=== PATIENT | male | born 1965 | race African-American/Black ===

== ENCOUNTER 2017-09-11 21:34 | Emergency (ER) | payer SELFPAY ==
[~2017-09-11] VITALS: Ht 193 cm; Wt 99.8 kg
[~2017-09-11 21:34] MED LIST: IBUPROFEN600 MG PO; IBUPROFEN800 MG ORAL; KEFLEX500 MG ORAL; NORCO 10/3251 EA ORAL; NORCO 5-325 TA1 EACH ORAL; NORCO 5-325 TA1 EACH PO; OXYCONTIN20 MG ORAL; PERCOCET 10-321 EACH ORAL; PROZAC10 MG ORAL; TRAMADOL HCL50 MG ORAL; UNOBMED
--- NOTE | 2017-09-11 21:40 | Emergency Room Report ---
History of Present Illness General Chief Complaint: Pain Source: Patient, EMS Present Illness HPI Is a 51-year-old male with a history of chronic pain. He called 911 because he said he has denies body pain that's been ongoing for over 20 years. He's been here numerous times in the past. He was just released from alf 10 days ago. He said he hasn't had any pain medication since then. Pain is 10 out of 10. Diffuse in nature. No fever chills but no trauma. He was walking without any difficulty per and months. Allergies: Coded Allergies: No Known Allergies (Unverified , 11/07/15) Patient History Past Medical History: see triage record, old chart reviewed Past Surgical History: other Pertinent Family History: none Social History: Reports: smoking Immunizations: other Reviewed Nursing Documentation: PMH: Agreed; PSxH: Agreed Nursing Documentation-PMH Past Medical History: No Stated History Hx Hypertension: Yes Review of Systems Eye: Denies: eye pain, blurred vision ENT: Denies: ear pain, nose congestion, throat swelling Respiratory: Denies: cough, shortness of breath Cardiovascular: Denies: chest pain, palpitations Gastrointestinal: Denies: abdominal pain, diarrhea, nausea, vomiting Musculoskeletal: Reports: joint pain, muscle pain; Denies: back pain Skin: Denies: rash Neurological: Denies: headache, numbness Endocrine: Denies: increased thirst, increased urine Hematologic/Lymphatic: Denies: easy bruising All Other Systems: negative except mentioned in HPI Physical Exam Vital Signs Date Time Temp Pulse Resp B/P (MAP) Pulse Ox O2 Delivery O2 Flow Rate FiO2 09/11/17 21:25 98.9 94 18 130/78 97 Room Air 99.0 vitals normal Sp02 EP Interpretation: reviewed, normal General Appearance: well appearing, no apparent distress, alert Head: normocephalic, atraumatic Eyes: bilateral eye PERRL, bilateral eye EOMI ENT: hearing grossly normal, normal pharynx Neck: full range of motion, supple, no meningismus Respiratory: chest non-tender, lungs clear, normal breath sounds Cardiovascular #1: regular rate, rhythm, no murmur Gastrointestinal: normal bowel sounds, non tender, no mass, no organomegaly, no bruit, non-distended Musculoskeletal: back normal, gait/station normal, normal range of motion Psychiatric: mood/affect normal Skin: warm/dry Medical Decision Making Diagnostic Impression: Primary Impression: opiate dependence Additional Impression: Pain ER Course Patient presents with exacerbation of chronic pain. He was walking without any difficulty. When he was placed in a chair, he said he wanted to bed to lay down. Unfortunately, or ER was full and there is no beds available. At this point he laid on the ground. He said he was hurting too much to walk. Because he was not cooperating, he was escorted out of the ER. He left without pain medication. When I ask him initially what kind of pain medication he was receiving in alf, he said he did not get anything. I see no need to give him pain medication for chronic issue here. I offered Motrin which he refused. Last Vital Signs Date Time Temp Pulse Resp B/P (MAP) Pulse Ox O2 Delivery O2 Flow Rate FiO2 09/11/17 21:25 98.9 94 18 130/78 97 Room Air 99.0 Status: unchanged Disposition: HOME, SELF-CARE Condition: Stable DRU GREGORIO M.D. September 11, 2017 21:40
[2017-09-11 21:46] VITALS: BP 130/78
== END 2017-09-11 21:46 | disposition home or self-care (01) ==
LOC: EDBD 21:34 → EMR 21:40
DX: F11.10 Opioid abuse, uncomplicated (principal); G89.29 Other chronic pain; I10 Essential (primary) hypertension
CPT/HCPCS: 99283

== ENCOUNTER 2017-09-22 13:45 | Inpatient (IN) | payer SELFPAY ==
[2017-09-22] VITALS (8 sets, daily range): BP systolic 87–114; BP diastolic 46–64
[~2017-09-22] VITALS: Ht 195.6 cm; Wt 97.6 kg
[2017-09-22] MEDS ORDERED: Pantoprazole Inj IV ONE (14:30)
[2017-09-22 15:05] LABS: HEMATOCRIT 37.2 % (42.0-52.0); HEMOGLOBIN 12.6 G/DL (14.2-18.0); MEAN CORPUSCULAR VOLUME 103 FL (80-99); PLATELET COUNT 84 K/UL (150-450); RED BLOOD COUNT 3.62 M/UL (4.70-6.10); RED CELL DISTRIBUTION WIDTH 13.1 % (11.6-14.8); WHITE BLOOD COUNT 5.2 K/UL (4.8-10.8)
[2017-09-22 15:11] LABS: INR 1.1 (0.9-1.1)
[2017-09-22 15:13] LABS: ANION GAP 9 mmol/L (5-15); BLOOD UREA NITROGEN 10 mg/dL (7-18); CALCIUM 7.6 MG/DL (8.5-10.1); CARBON DIOXIDE 28 MMOL/L (21-32); CHLORIDE 106 MMOL/L (98-107); CREATININE 0.9 MG/DL (0.55-1.30); POTASSIUM 3.9 MMOL/L (3.5-5.1); SODIUM 142 MMOL/L (136-145)
[2017-09-22 15:34] LABS: ALANINE AMINOTRANSFERASE 199 U/L (12-78); ALBUMIN 2.7 G/DL (3.4-5.0); ALBUMIN/GLOBULIN RATIO 0.7 (1.0-2.7); ALKALINE PHOSPHATASE 158 U/L (46-116); ASPARTATE AMINO TRANSFERASE 317 U/L (15-37)
--- NOTE | 2017-09-22 16:16 | Emergency Room Report ---
History of Present Illness General Chief Complaint: Vomiting Source: Patient Present Illness HPI 51-year-old male presents ED for evaluation. Patient brought in because of vomiting. Friend at bedside states he's been vomiting blood times one day. Admits to drinking alcohol today. Denies drug use. Denies any abdominal pain. Denies any chest pain or shortness of breath. No other aggravating or relieving factors. Denies any other associated symptoms Allergies: Coded Allergies: No Known Allergies (Unverified , 11/07/15) Patient History Past Medical History: HTN Past Surgical History: none Pertinent Family History: none Social History: Reports: alcohol use; Denies: smoking, drug use Immunizations: UTD Reviewed Nursing Documentation: PMH: Agreed; PSxH: Agreed Nursing Documentation-PMH Past Medical History: No History, Except For Hx Hypertension: Yes Review of Systems All Other Systems: negative except mentioned in HPI Physical Exam Vital Signs Date Time Temp Pulse Resp B/P (MAP) Pulse Ox O2 Delivery O2 Flow Rate FiO2 09/22/17 14:25 99.0 90 16 115/67 99 Room Air 99.0 Sp02 EP Interpretation: reviewed, normal General Appearance: no apparent distress, alert, GCS 15, non-toxic Head: normocephalic, atraumatic Eyes: bilateral eye normal inspection, bilateral eye PERRL ENT: hearing grossly normal, normal pharynx, no angioedema, normal voice Neck: full range of motion, supple/symm/no masses Respiratory: chest non-tender, lungs clear, normal breath sounds, speaking full sentences Cardiovascular #1: regular rate, rhythm, no edema Cardiovascular #2: 2+ carotid (R), 2+ carotid (L), 2+ radial (R), 2+ radial (L) , 2+ dorsalis pedis (R), 2+ dorsalis pedis (L) Gastrointestinal: normal bowel sounds, non tender, soft, non-distended, no guarding, no rebound Rectal: deferred Genitourinary: normal inspection, no CVA tenderness Musculoskeletal: back normal, gait/station normal, normal range of motion, non- tender Neurologic: alert, oriented x3, responsive, motor strength/tone normal, sensory intact, speech normal Psychiatric: judgement/insight normal, memory normal, mood/affect normal, no suicidal/homicidal ideation Reflexes: 3+ bicep (R), 3+ bicep (L), 3+ tricep (R), 3+ tricep (L), 3+ knee (R) , 3+ knee (L) Skin: normal color, no rash, warm/dry, well hydrated Lymphatic: no adenopathy Procedures Critical Care Time Critical Care Time i. I feel this is a highly complex case requiring extensive working including EKG/Rhythm strip, Xray/CT/US, Blood/urine lab work, repeat exams while in ED, and administration of strong opiates/narcotics for pain control, admission to hospital or close patient follow up. Total time: 30 min bedside evaluation and treatment excludes procedures (EKG). Reason for critical care: Upper GI bleed, hypotensive, hematemesis Possible complications: hypotension, hypertension, OH, shock, arrhythmias, metabolic acidosis, end organ damage, respiratory failure. Interventions: Labs, IV fluids, Zofran, Protonix. Somatostatin. Protonix drip. Somatostatin drip. Consultation with GI Course: Patient presenting with hematemesis. History of alcohol abuse. Labs show significant LFT elevation. Coags okay. Hemoglobin/hematocrit okay. EtOH elevated. During ED course patient had 3 episodes of hematemesis. Hypotensive. Improved with IV hydration. Given Zofran, Protonix, octreotide. Started on Protonix drip and octreotide drip. consultation with GI. Consultations: nursing staff, EMS, family Performed by: Dr Kan Tolerated well condition = critical j. because of unstable vital signs this patient had a condition that could potentially threaten life or limb. I feel this is a critical patient who required my full attention while patient was considered critical. Total Critical Care Time excluding procedures was greater than 35 minutes Medical Decision Making Diagnostic Impression: Primary Impression: Alcohol intoxication Qualified Codes: F10.929 - Alcohol use, unspecified with intoxication, unspecified Additional Impressions: Elevated LFTs Upper GI hemorrhage ER Course Hospital Course 51-year-old male presents ED with vomiting blood. Differential diagnoses include: UGIB, LGIB, cirrhosis Clinical course Patient placed on stretcher. ekg monitor. After initial history and physical I ordered labs, IV fluids, protonix, zofran Labs - no leukocytosis, Hb/Hct stable. electrolytes ok, LFTs markedly elevated, ETOH > 300, coags ok Patient rested comfortably in ED. When patient woke up he had 3 episodes of hematemesis. Gross blood. Became hypotensive. Given IV hydration. Given additional Protonix. Given octreotide. Started on Protonix drip, started on octreotide drip Repeat Hb 9.6 (intially 12.6). Patient has had no further episodes of vomiting. No indication for intubation at this time. EKG - NSR, no acute ischemic changes interpreted by me I spoke to GI Dr Duke; he will see the patient and attempt urgent endoscopy Case discussed with Dr. Rangel and he agreed to accept the patient to his service for further care and support I feel this is a highly complex case requiring extensive working including EKG/ Rhythm strip, Xray/CT/US, Blood/urine lab work, repeat exams while in ED, and administration of strong opiates/narcotics for pain control, admission to hospital or close patient follow up. Diagnosis - alcohol intoxication, elevated LFTs, upper GI hemorrhage Patient admitted to ICU in critical condition Labs Test 09/22/17 14:40 White Blood Count 5.2 K/UL (4.8-10.8) Red Blood Count 3.62 M/UL (4.70-6.10) Hemoglobin 12.6 G/DL (14.2-18.0) Hematocrit 37.2 % (42.0-52.0) Mean Corpuscular Volume 103 FL (80-99) Mean Corpuscular Hemoglobin 34.9 PG (27.0-31.0) Mean Corpuscular Hemoglobin Concent 34.0 G/DL (32.0-36.0) Red Cell Distribution Width 13.1 % (11.6-14.8) Platelet Count 84 K/UL (150-450) Mean Platelet Volume 9.2 FL (6.5-10.1) Neutrophils (%) (Auto) % (45.0-75.0) Lymphocytes (%) (Auto) % (20.0-45.0) Monocytes (%) (Auto) % (1.0-10.0) Eosinophils (%) (Auto) % (0.0-3.0) Basophils (%) (Auto) % (0.0-2.0) Differential Total Cells Counted 100 Neutrophils % (Manual) 52 % (45-75) Lymphocytes % (Manual) 28 % (20-45) Monocytes % (Manual) 11 % (1-10) Eosinophils % (Manual) 6 % (0-3) Basophils % (Manual) 3 % (0-2) Band Neutrophils 0 % (0-8) Platelet Estimate Decreased Platelet Morphology Normal Anisocytosis 1+ Macrocytosis 1+ Prothrombin Time 11.7 SEC (9.30-11.50) Prothromb Time International Ratio 1.1 (0.9-1.1) Activated Partial Thromboplast Time 28 SEC (23-33) Sodium Level 142 MMOL/L (136-145) Potassium Level 3.9 MMOL/L (3.5-5.1) Chloride Level 106 MMOL/L (98-107) Carbon Dioxide Level 28 MMOL/L (21-32) Anion Gap 9 mmol/L (5-15) Blood Urea Nitrogen 10 mg/dL (7-18) Creatinine 0.9 MG/DL (0.55-1.30) Estimat Glomerular Filtration Rate > 60 mL/min (>60) Glucose Level 129 MG/DL (74-106) Calcium Level 7.6 MG/DL (8.5-10.1) Total Bilirubin 1.0 MG/DL (0.2-1.0) Aspartate Amino Transf (AST/SGOT) 317 U/L (15-37) Alanine Aminotransferase (ALT/SGPT) 199 U/L (12-78) Alkaline Phosphatase 158 U/L (46-116) Total Protein 6.6 G/DL (6.4-8.2) Albumin 2.7 G/DL (3.4-5.0) Globulin 3.9 g/dL Albumin/Globulin Ratio 0.7 (1.0-2.7) Lipase 577 U/L (73-393) Serum Alcohol 347 mg/dL EKG Diagnostic Results Rate: normal Rhythm: NSR ST Segments: no acute changes ASA given to the pt in ED: No Rhythm Strip Diag. Results EP Interpretation: yes Rhythm: NSR, no PVC's, no ectopy Last Vital Signs Date Time Temp Pulse Resp B/P (MAP) Pulse Ox O2 Delivery O2 Flow Rate FiO2 09/22/17 14:25 99.0 90 16 115/67 99 Room Air 99.0 Status: improved Disposition: HOME, SELF-CARE Condition: Critical Mario Kan MD Sep 22, 2017 16:16
[2017-09-22] MEDS ORDERED: Octreotide Acetate 500 MCG in Sodium Chloride 500ML 499 ML IV SCH (17:00)
[2017-09-22] MEDS ORDERED: SandoSTATIN 50mcg Inj IVP ONE (17:15)
[2017-09-22] MEDS ORDERED: Pantoprazole 80 MG in NS 250 ML IV ONE (17:15)
[2017-09-22] MEDS ORDERED: Pantoprazole Inj IVP ONE (17:15)
[2017-09-22] MEDS ORDERED: Metoclopramide 10mg/2ml Inj IVP ONE (17:30)
[2017-09-22 18:50] LABS: HEMATOCRIT 27.7 % (42.0-52.0); HEMOGLOBIN 9.6 G/DL (14.2-18.0); MEAN CORPUSCULAR VOLUME 100 FL (80-99); PLATELET COUNT 69 K/UL (150-450); RED BLOOD COUNT 2.76 M/UL (4.70-6.10); RED CELL DISTRIBUTION WIDTH 12.7 % (11.6-14.8); WHITE BLOOD COUNT 6.5 K/UL (4.8-10.8)
[2017-09-22] MEDS ORDERED: cefTRIAXone 1 GM in NS 55 ML IVPB ONE (19:00)
[2017-09-22] MEDS ORDERED: NKM (19:08)
[2017-09-22] MEDS: DOPamine 400mg/250ml 250 ML IV SCH (20:15)
[2017-09-22] MEDS ORDERED: Miralax 17gm pkt ORAL PRN (20:15)
[2017-09-22] MEDS: D5NS 1,000 ML IV SCH (20:49)
[2017-09-22] MEDS ORDERED: Phytonadione 10 MG in D5W 55 ML IVPB ONE (21:30)
[2017-09-22] MEDS ORDERED: Morphine Sulfate 4mg/ml Inj IVP PRN (22:00)
[2017-09-22] MEDS: Pantoprazole 80 MG in NS 250 ML IV SCH (23:34)
[2017-09-22] MEDS: Octreotide Acetate 500 MCG in Sodium Chloride 500ML 499 ML IV SCH (23:35)
[2017-09-23] VITALS (22 sets, daily range): BP systolic 90–159; BP diastolic 44–106
[2017-09-23 05:08] LABS: HEMATOCRIT 24.6 % (42.0-52.0); HEMOGLOBIN 8.3 G/DL (14.2-18.0); MEAN CORPUSCULAR VOLUME 103 FL (80-99); PLATELET COUNT 70 K/UL (150-450); RED CELL DISTRIBUTION WIDTH 12.9 % (11.6-14.8); WHITE BLOOD COUNT 8.1 K/UL (4.8-10.8)
[2017-09-23 05:15] LABS: INR 1.2 (0.9-1.1)
[2017-09-23 05:29] LABS: ALANINE AMINOTRANSFERASE 143 U/L (12-78); ALBUMIN 2.2 G/DL (3.4-5.0); ALBUMIN/GLOBULIN RATIO 0.8 (1.0-2.7); ALKALINE PHOSPHATASE 90 U/L (46-116); AMYLASE 85 U/L (25-115); ANION GAP 8 mmol/L (5-15); ASPARTATE AMINO TRANSFERASE 215 U/L (15-37); BILIRUBIN,TOTAL 1.4 MG/DL (0.2-1.0); BLOOD UREA NITROGEN 17 mg/dL (7-18); CALCIUM 7.2 MG/DL (8.5-10.1); CARBON DIOXIDE 25 MMOL/L (21-32); CHLORIDE 110 MMOL/L (98-107); CREATININE 0.9 MG/DL (0.55-1.30); POTASSIUM 4.3 MMOL/L (3.5-5.1); SODIUM 143 MMOL/L (136-145)
[2017-09-23 05:38] LABS: BILIRUBIN,DIRECT 0.9 MG/DL (0.0-0.3)
[2017-09-23] MEDS: D5NS 1,000 ML IV SCH ×2 (06:03→16:03)
--- NOTE | 2017-09-23 07:54 | Pre-Procedure Note/Attestation ---
Pre-Procedure Note/Attestation Complete Prior to Procedure Planned Procedure: not applicable Procedure Narrative: egd Indications for Procedure Pre-Operative Diagnosis: gib Attestation I attest that I discussed the nature of the procedure; its benefits; risks and complications; and alternatives (and the risks and benefits of such alternatives ), prior to the procedure, with the patient (or the patient's legal shared services representative). I attest that, if there was a reasonable possibility of needing a blood transfusion, the patient (or the patient's legal shared services representative) was given the [facility] standardized written summary, pursuant to the [employer] Blood Safety Act ([place] Health and Safety Code # 1645, as amended). I attest that I re-evaluated the patient just prior to the surgery and that there has been no change in the patient's H&P, except as documented below: Christo Duke MD Sep 23, 2017 07:54
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
[2017-09-23] MEDS ORDERED: Lidocaine 1% MPF 10mg/ml 5ml ONE ×2 (08:32→09:00)
[2017-09-23] MEDS ORDERED: Propofol 200mg/20ml IV ONE ×2 (08:32→09:00)
--- NOTE | 2017-09-23 08:46 | Pulmonolgy Critical Care Note ---
Critical Care - Asmt/Plan Problems: (1) Hemorrhagic shock (2) Upper GI hemorrhage (3) Alcohol intoxication Respiratory: monitor respiratory rate, adjust FIO2 Cardiac: continue to monitor HR/BP Renal: F/U I&O, keep IV fluid Infectious Disease: check cultures Gastrointestinal: continue feedings/current rate Endocrine: check TSH Hematologic: monitor H/H, transfuse if hgb<8.5 Affect: PRN ativan Prophylaxis: Protonix Discussed with: nurses, hospice case managerevs manager - Objective Last 24 Hour Vital Signs Date Time Temp Pulse Resp B/P (MAP) Pulse Ox O2 Delivery O2 Flow Rate FiO2 09/23/17 07:00 87 17 127/83 99 Room Air 09/23/17 06:00 90 17 119/64 99 Room Air 09/23/17 05:00 90 17 119/79 99 Room Air 09/23/17 04:00 95 09/23/17 04:00 98.0 96 17 128/76 99 Room Air 98.0 09/23/17 03:00 91 18 116/68 99 Room Air 09/23/17 02:00 86 18 119/64 97 Room Air 09/23/17 01:00 96 18 105/67 97 Room Air 09/23/17 00:27 88 09/23/17 00:00 98.2 92 16 91/44 97 Nasal Cannula 2.0 98.2 09/22/17 23:00 88 16 113/52 100 Nasal Cannula 2.0 09/22/17 22:06 100 16 114/64 98 Nasal Cannula 2.0 09/22/17 21:10 90 18 91/56 98 Nasal Cannula 2.0 09/22/17 20:19 95 09/22/17 20:15 114/64 09/22/17 20:00 97.7 95 18 104/57 98 Nasal Cannula 2.0 97.7 09/22/17 19:45 99.0 91 16 97/58 99 Room Air 99.0 09/22/17 19:01 91 16 97/58 99 Room Air 09/22/17 18:00 87 17 89/50 99 Room Air 09/22/17 17:00 86 19 87/49 99 Room Air 09/22/17 16:16 99.0 80 16 99/46 99 Room Air 99.0 09/22/17 14:25 99.0 90 16 115/67 99 Room Air 99.0 Status: awake Condition: critical Neck: full ROM Heart: HR/BP stable Abdomen: soft, feeding tube Critical Care - Subjective ROS Limited/Unobtainable: Yes ICU Day: 2 EKG Rhythm: Sinus Rhythm I&O: Intake and Output 09/22/17 09/23/17 19:00 07:00 Intake Total 60 ml 1450 ml Output Total 383 ml Balance 60 ml 1067 ml Intake Oral 60 ml 0 ml IV Total 1450 ml Output Urine Total 380 ml Stool Total 3 ml # Bowel Movements 3 Labs: Laboratory Tests Test 09/22/17 14:40 09/22/17 18:15 09/23/17 04:30 White Blood Count 5.2 K/UL (4.8-10.8) 6.5 K/UL (4.8-10.8) 8.1 K/UL (4.8-10.8) Red Blood Count 3.62 M/UL (4.70-6.10) L 2.76 M/UL (4.70-6.10) L 2.40 M/UL (4.70-6.10) L Hemoglobin 12.6 G/DL (14.2-18.0) L 9.6 G/DL (14.2-18.0) L 8.3 G/DL (14.2-18.0) L Hematocrit 37.2 % (42.0-52.0) L 27.7 % (42.0-52.0) L 24.6 % (42.0-52.0) L Mean Corpuscular Volume 103 FL (80-99) H 100 FL (80-99) H 103 FL (80-99) H Mean Corpuscular Hemoglobin 34.9 PG (27.0-31.0) H 34.7 PG (27.0-31.0) H 34.5 PG (27.0-31.0) H Mean Corpuscular Hemoglobin Concent 34.0 G/DL (32.0-36.0) 34.5 G/DL (32.0-36.0) 33.6 G/DL (32.0-36.0) Red Cell Distribution Width 13.1 % (11.6-14.8) 12.7 % (11.6-14.8) 12.9 % (11.6-14.8) Platelet Count 84 K/UL (150-450) L 69 K/UL (150-450) L 70 K/UL (150-450) L Mean Platelet Volume 9.2 FL (6.5-10.1) 9.6 FL (6.5-10.1) 10.5 FL (6.5-10.1) H Neutrophils (%) (Auto) % (45.0-75.0) % (45.0-75.0) % (45.0-75.0) Lymphocytes (%) (Auto) % (20.0-45.0) % (20.0-45.0) % (20.0-45.0) Monocytes (%) (Auto) % (1.0-10.0) % (1.0-10.0) % (1.0-10.0) Eosinophils (%) (Auto) % (0.0-3.0) % (0.0-3.0) % (0.0-3.0) Basophils (%) (Auto) % (0.0-2.0) % (0.0-2.0) % (0.0-2.0) Differential Total Cells Counted 100 100 Neutrophils % (Manual) 52 % (45-75) 50 % (45-75) Pending Lymphocytes % (Manual) 28 % (20-45) 35 % (20-45) Pending Monocytes % (Manual) 11 % (1-10) H 12 % (1-10) H Eosinophils % (Manual) 6 % (0-3) H 2 % (0-3) Basophils % (Manual) 3 % (0-2) H 1 % (0-2) Band Neutrophils 0 % (0-8) 0 % (0-8) Platelet Estimate Decreased L Decreased L Pending Platelet Morphology Normal Normal Pending Anisocytosis 1+ 1+ Macrocytosis 1+ 1+ Prothrombin Time 11.7 SEC (9.30-11.50) H 12.9 SEC (9.30-11.50) H Prothromb Time International Ratio 1.1 (0.9-1.1) 1.2 (0.9-1.1) H Activated Partial Thromboplast Time 28 SEC (23-33) 29 SEC (23-33) Sodium Level 142 MMOL/L (136-145) 143 MMOL/L (136-145) Potassium Level 3.9 MMOL/L (3.5-5.1) 4.3 MMOL/L (3.5-5.1) Chloride Level 106 MMOL/L (98-107) 110 MMOL/L (98-107) H Carbon Dioxide Level 28 MMOL/L (21-32) 25 MMOL/L (21-32) Anion Gap 9 mmol/L (5-15) 8 mmol/L (5-15) Blood Urea Nitrogen 10 mg/dL (7-18) 17 mg/dL (7-18) Creatinine 0.9 MG/DL (0.55-1.30) 0.9 MG/DL (0.55-1.30) Estimat Glomerular Filtration Rate > 60 mL/min (>60) > 60 mL/min (>60) Glucose Level 129 MG/DL (74-106) H 158 MG/DL (74-106) H Calcium Level 7.6 MG/DL (8.5-10.1) L 7.2 MG/DL (8.5-10.1) L Total Bilirubin 1.0 MG/DL (0.2-1.0) 1.4 MG/DL (0.2-1.0) H Aspartate Amino Transf (AST/SGOT) 317 U/L (15-37) H 215 U/L (15-37) H Alanine Aminotransferase (ALT/SGPT) 199 U/L (12-78) H 143 U/L (12-78) H Alkaline Phosphatase 158 U/L (46-116) H 90 U/L (46-116) Total Protein 6.6 G/DL (6.4-8.2) 5.0 G/DL (6.4-8.2) L Albumin 2.7 G/DL (3.4-5.0) L 2.2 G/DL (3.4-5.0) L Globulin 3.9 g/dL 2.8 g/dL Albumin/Globulin Ratio 0.7 (1.0-2.7) L 0.8 (1.0-2.7) L Lipase 577 U/L (73-393) H 200 U/L (73-393) Serum Alcohol 347 mg/dL Direct Bilirubin 0.9 MG/DL (0.0-0.3) H Amylase Level 85 U/L (25-115) Gerald Martino MD Sep 23, 2017 08:46
[2017-09-23] MEDS: Octreotide Acetate 500 MCG in Sodium Chloride 500ML 499 ML IV SCH ×2 (09:00→19:00)
[2017-09-23] MEDS: Pantoprazole 80 MG in NS 250 ML IV SCH ×3 (09:00→19:00)
--- NOTE | 2017-09-23 09:12 | Endoscopy Procedure Note ---
Endoscopy Procedure Note General Indication for Procedure: gib Procedures Performed: EGD Operative Findings/Diagnosis: esoph varices Specimen: yes Pt Tolerated Procedure Well: Yes Estimated Blood Loss: none Anesthesia Anesthesiologist: see chart Anesthesia: MAC Inserted Devices Implant(s) used?: No GI Core Measures 50 yrs or older w/o bx or poly: Not Applicable 10yrs. F/U not recommended: Not Applicable Christo Duke MD Sep 23, 2017 09:12
[2017-09-23] MEDS ORDERED: Metoclopramide 10mg/2ml Inj IVP PRN (09:15)
--- NOTE | 2017-09-23 10:33 | Immediate Post-Op Evaluation ---
Immediate Post-Op Evalulation Immediate Post-Op Evalulation Procedure: egd Date of Evaluation: Sep 23, 2017 Time of Evaluation: 09:15 IV Fluids: ns 100ml Estimated Blood Loss: 100ml Urinary Output: 0 Blood Pressure Systolic: 120 Blood Pressure Diastolic: 79 Pulse Rate: 105 Respiratory Rate: 20 O2 Sat by Pulse Oximetry: 99 Pain Score (1-10): 0 Nausea: No Vomiting: No Complications none Patient Status: awake, patent, none Hydration Status: adequate Drug: none Kaylan Waddell M.D. Sep 23, 2017 10:33
--- NOTE | 2017-09-23 10:34 | 48 Hour Post Anesthesia Eval ---
Post Anesthesia Evaluation Procedure: egd Date of Evaluation: Sep 23, 2017 Time of Evaluation: 10:30 Blood Pressure Systolic: 119 0: 82 Pulse Rate: 89 Respiratory Rate: 19 O2 Sat by Pulse Oximetry: 99 Airway: patent Nausea: No Vomiting: No Pain Intensity: 0 Hydration Status: adequate Mental Status/LOC: patient returned to baseline Post-Anesthesia Complications: none Follow-up care needed: N/A Kaylan Waddell M.D. Sep 23, 2017 10:34
--- NOTE | 2017-09-23 11:32 | Procedure Note ---
DATE OF PROCEDURE: 09/23/2017 SURGEON: Christo Duke M.D. REFERRING PHYSICIAN: Joshua Rangel M.D. PROCEDURE: Upper endoscopy with banding of esophageal varices. ANESTHESIA: Please see anesthesia sheet. INSTRUMENT: Olympus adult upper EUS EGD scope. INDICATION: Upper GI bleeding. The procedure, risks, benefits, and possible consequences, including hemorrhage, aspiration, perforation and infection, and alternative treatments, were explained to the patient/legal guardian by Dr. Christo Duke and the patient/legal guardian understood and accepted these risks. DESCRIPTION OF PROCEDURE: After informed consent was obtained and the patient was adequately sedated, Olympus endoscope was advanced from the mouth into the second portion of the duodenum and retroflexion was performed in the stomach. The patient had evidence of at least two varix in the GE junction with a nipple actively bleeding. Initially, we thought that might be a Khushboo-Yoon tear and initially it looked actually a Khushboo-Yoon tear, and then we injected with epinephrine about 2 mL of 1:10,000 dilution around it and then after flushing it and cleaning it up and keeping flushing it to stop the bleeding, we actually had to use the epinephrine wash to hold the bleeding, so we can evaluate the area a little bit better, I realized actually this was actually a varix with a nipple on it. At this time, we switched to the banding device. We placed two bands on the distal esophageal varix and the procedure was terminated. SUMMARY OF FINDINGS: Esophageal varices, status post banding, most probably the source of bleeding. PLAN: Continue octreotide drip. Continue on Protonix drip. Monitor hemoglobin and hematocrit and transfuse for hemoglobin above 7. We will also consider transfusing 1 unit of platelets. I want to thank Dr. Joshua Rangel for this kind referral. Christo Duke M.D. DR: Rachel JOB#: [id number] CC: Joshua Rangel D.O.
[2017-09-23] MEDS ORDERED: Folic Acid 1 MG, Magnesium Sulfate 2,000 MG, Multivitamin - 12 Injection 10 ML in NS w/... IV SCH (16:00)
--- NOTE | 2017-09-23 20:02 | Procedure Note ---
SURGEON: Christo Duke M.D. REFERRING PHYSICIAN: Joshua Rangel M.D. PROCEDURE: Upper endoscopy with banding of esophageal varices . ANESTHESIOLOGIST: Please see anesthesia sheet. INSTRUMENT: Olympus adult upper EUS, EGD scope. INDICATION: Upper GI bleeding. The procedure, risks, benefits, and possible consequences, including hemorrhage, aspiration, perforation and infection, and alternative treatments, were explained to the patient/legal guardian by Dr. Christo Duke and the patient/legal guardian understood and accepted these risks. DESCRIPTION OF PROCEDURE: After informed consent was obtained and the patient was adequately sedated, Olympus endoscope was advanced from the mouth into the second portion of the duodenum and retroflexion was performed in the stomach. The patient had evidence of at least two varix in the GE junction with a nipple actively bleeding. Initially, we thought that might be a Khushboo-Yoon tear and initially it looked actually a Khushboo-Yoon tear, and then we injected with epinephrine about 2 mL of 1:10,000 dilution around it and then after flushing it and cleaning it up and keep flushing it to stop the bleeding, we actually had to use the epinephrine wash to hold the bleeding so we can evaluate the area a little bit better, I realized actually this was actually a varix with a nipple on it. At this time, we switched to the banding device. We placed two bands on the distal esophageal varix and the procedure was terminated. SUMMARY OF FINDINGS: Esophageal varices, status post banding, most probably the source of bleeding. PLAN: Continue octreotide drip. Continue on Protonix drip. Monitor hemoglobin and hematocrit and transfuse for hemoglobin above 7. We will also consider transfusing 1 unit of platelets. I want to thank Dr. Joshua Rangel for this kind referral. Christo Duke M.D. DR: Rachel JOB#: [id number] CC:
[2017-09-23] MEDS: DOPamine 400mg/250ml 250 ML IV SCH (20:15)
--- NOTE | 2017-09-23 21:16 | History and Physical Report ---
DATE OF ADMISSION: 09/22/2017 TIME: 9 a.m. QUALITY LAB TECHNICIAN: 1. Christo Duke M.D. 2. Gerald Martino M.D. CHIEF COMPLAINT: Upper GI bleed, anemia, cirrhosis. BRIEF HISTORY: This 51-year-old male who presents to [facility] last night with above-mentioned diagnoses. History is limited since the patient is getting endoscopy right now in the ICU. REVIEW OF SYSTEMS: Unavailable. PAST MEDICAL HISTORY: Include chronic pain, opiate dependence, GI bleed, alcohol intoxication. PAST SURGICAL HISTORY: Unknown. MEDICATIONS: Include folic acid, octreotide, pantoprazole, morphine, Tylenol, Zofran, temazepam, ceftriaxone given x1, dopamine, . ALLERGIES: Denies. SOCIAL HISTORY: Positive alcohol. The other unable to obtain. PHYSICAL EXAMINATION: GENERAL: Lethargic in bed, getting upper endoscopy currently. VITAL SIGNS: Show temperature is 98, pulse 87, respirations 17, blood pressure 127/83. Physical exam was deferred to later. LABORATORY AND DIAGNOSTIC DATA: Labs at this time show hemoglobin and hematocrit initially was 12.6 went down to 8.3 this morning over 24, platelet 70, thrombocytopenia. BMP shows chloride 110, glucose 158. BUN and creatinine is fine. AST 215, ALT 143, albumin 2.2, hypoalbumin. INR is 1.2. PTT is 29. Serum alcohol 347 ASSESSMENT: 1. Upper gastrointestinal bleed plus thrombocytopenia. 2. Anemia. 3. Cirrhosis. 4. Diabetes. 5. Hypoalbuminemia. 6. Chronic pain. 7. Alcohol intoxication. PLAN: 1. GI followup, getting upper endoscopy now. 2. Transfuse as needed. 3. Blood pressure and blood sugar control. 4. Pain control. 5. Dietary followup. 6. CBC and BMP in the morning. 7. Gunner Clark and Dr. Abraham will continue to follow the patient. Joshua Rangel D.O. DR: INGRIS JOB#: [id number] CC:
[2017-09-24] VITALS (20 sets, daily range): BP systolic 118–153; BP diastolic 76–106
[2017-09-24] MEDS: Octreotide Acetate 500 MCG in Sodium Chloride 500ML 499 ML IV SCH ×2 (01:50→12:13)
[2017-09-24] MEDS: Pantoprazole 80 MG in NS 250 ML IV SCH (01:50)
[2017-09-24] MEDS: D5NS 1,000 ML IV SCH ×3 (01:50→15:41)
[2017-09-24 04:59] LABS: HEMATOCRIT 24.3 % (42.0-52.0); HEMOGLOBIN 8.8 G/DL (14.2-18.0); MEAN CORPUSCULAR VOLUME 101 FL (80-99); PLATELET COUNT 69 K/UL (150-450); RED CELL DISTRIBUTION WIDTH 12.2 % (11.6-14.8); WHITE BLOOD COUNT 9.2 K/UL (4.8-10.8)
[2017-09-24 05:37] LABS: INR 1.1 (0.9-1.1)
[2017-09-24 06:07] LABS: ALANINE AMINOTRANSFERASE 148 U/L (12-78); ALBUMIN 2.7 G/DL (3.4-5.0); ALBUMIN/GLOBULIN RATIO 0.8 (1.0-2.7); ALKALINE PHOSPHATASE 91 U/L (46-116); ANION GAP 6 mmol/L (5-15); ASPARTATE AMINO TRANSFERASE 225 U/L (15-37); BLOOD UREA NITROGEN 9 mg/dL (7-18); CALCIUM 7.9 MG/DL (8.5-10.1); CARBON DIOXIDE 29 MMOL/L (21-32); CHLORIDE 102 MMOL/L (98-107); CREATININE 0.9 MG/DL (0.55-1.30); PHOSPHORUS 2.6 MG/DL (2.5-4.9); POTASSIUM 3.6 MMOL/L (3.5-5.1); SODIUM 137 MMOL/L (136-145)
[2017-09-24 06:44] LABS: % IRON SATURATION 32 % (15-50); IRON 79 ug/dL (50-175); TOTAL IRON BINDING CAPACITY 249 ug/dL (250-450)
[2017-09-24 07:07] LABS: FERRITIN 1073 NG/ML (8-388); LACTATE DEHYDROGENASE 259 U/L (81-234)
[2017-09-24 07:26] LABS: BILIRUBIN,DIRECT 1.3 MG/DL (0.0-0.3)
--- NOTE | 2017-09-24 08:00 | General Progress Note ---
Assessment/Plan Problem List: (1) UGIB (upper gastrointestinal bleed) ICD Codes: K92.2 - Gastrointestinal hemorrhage, unspecified SNOMED: 34539071 (2) Anemia ICD Codes: D64.9 - Anemia, unspecified SNOMED: 918024990 (3) Cirrhosis ICD Codes: K74.60 - Unspecified cirrhosis of liver SNOMED: 94612705 (4) Diabetes ICD Codes: E11.9 - Type 2 diabetes mellitus without complications SNOMED: 65740552 (5) Chronic pain ICD Codes: G89.29 - Other chronic pain SNOMED: 27797789 (6) Alcohol abuse ICD Codes: F10.10 - Alcohol abuse, uncomplicated SNOMED: 78627839 Status: stable, progressing Assessment/Plan diet f/u gi f/u detox cbc bmp am dc plan Subjective Constitutional: Reports: weakness Allergies: Coded Allergies: No Known Allergies (Unverified , 11/07/15) All Systems: reviewed and negative except above Subjective calm in bed Objective Last 24 Hour Vital Signs Date Time Temp Pulse Resp B/P (MAP) Pulse Ox O2 Delivery O2 Flow Rate FiO2 09/24/17 07:00 81 18 152/101 100 Room Air 09/24/17 06:00 80 15 130/84 94 Room Air 09/24/17 05:00 84 16 141/94 100 Room Air 09/24/17 04:00 78 09/24/17 04:00 97.5 89 18 134/106 100 Room Air 97.5 09/24/17 03:00 87 18 153/106 100 Room Air 09/24/17 02:00 87 16 151/81 100 Room Air 09/24/17 01:00 86 17 151/98 100 Room Air 09/24/17 00:00 97.1 82 17 142/83 94 Room Air 97.1 09/23/17 23:31 78 09/23/17 23:00 90 17 154/96 97 Room Air 09/23/17 22:00 90 18 159/101 99 Room Air 09/23/17 21:00 87 20 133/94 98 Room Air 09/23/17 20:15 149/73 09/23/17 20:00 98.4 98 19 149/93 98 Room Air 98.4 09/23/17 19:43 92 09/23/17 19:00 95 09/23/17 18:00 105 19 97/106 99 Room Air 09/23/17 17:00 95 19 117/106 99 Room Air 09/23/17 16:00 92 19 137/87 99 Room Air 09/23/17 15:00 90 15 156/83 99 Room Air 09/23/17 14:00 93 15 140/90 99 Room Air 09/23/17 13:00 90 15 90/66 99 Room Air 09/23/17 12:00 94 09/23/17 12:00 88 15 156/91 99 Room Air 09/23/17 10:34 89 19 99 09/23/17 10:33 105 20 99 09/23/17 10:00 90 15 138/80 99 Room Air 09/23/17 09:00 92 15 128/85 99 Room Air 09/23/17 09:00 116 15 123/77 99 Room Air 09/23/17 08:00 66 09/23/17 08:00 99.1 93 15 124/79 99 Room Air 99.1 Intake and Output 09/23/17 09/24/17 19:00 07:00 Intake Total 1725 ml 2875 ml Output Total 1550 ml 3000 ml Balance 175 ml -125 ml Intake Oral 0 ml 0 ml IV Total 1725 ml 2875 ml Output Urine Total 1550 ml 3000 ml # Voids 2 # Bowel Movements 3 Laboratory Tests 09/24/17 04:30: White Blood Count 9.2, Red Blood Count 2.40L, Hemoglobin 8.8L, Hematocrit 24.3L , Mean Corpuscular Volume 101H, Mean Corpuscular Hemoglobin 36.7H, Mean Corpuscular Hemoglobin Concent 36.3H, Red Cell Distribution Width 12.2, Platelet Count 69L, Mean Platelet Volume 10.0, Neutrophils (%) (Auto) , Lymphocytes (%) (Auto) , Monocytes (%) (Auto) , Eosinophils (%) (Auto) , Basophils (%) (Auto) , Neutrophils % (Manual) [Pending], Lymphocytes % (Manual) [Pending], Platelet Estimate [Pending], Platelet Morphology [Pending], Haptoglobin [Pending], Prothrombin Time 11.4, Prothromb Time International Ratio 1.1, Activated Partial Thromboplast Time 27, PTT Mixing Study [Pending], APTT Patient/Control Mix [Pending], Mix PTT Incubation Time [Pending], Mix PTT Normal/Saline 1:1 Immediate [Pending], Thrombin Time Normal Plasma [Pending], Sodium Level 137, Potassium Level 3.6, Chloride Level 102, Carbon Dioxide Level 29, Anion Gap 6, Blood Urea Nitrogen 9, Creatinine 0.9, Estimat Glomerular Filtration Rate > 60, Glucose Level 124H, Calcium Level 7.9L, Phosphorus Level 2.6, Magnesium Level 1.7L, Iron Level 79, Total Iron Binding Capacity 249L, Percent Iron Saturation 32, Unsaturated Iron Binding 170, Soluble Transferrin Receptor [Pending], Ferritin 1073H, Total Bilirubin 2.0H, Direct Bilirubin 1.3H , Aspartate Amino Transf (AST/SGOT) 225H, Alanine Aminotransferase (ALT/SGPT) 148H, Alkaline Phosphatase 91, Lactate Dehydrogenase 259H, Total Protein 6.1L, Albumin 2.7L, Globulin 3.4, Albumin/Globulin Ratio 0.8L, Vitamin B12 Level 537, Methylmalonic Acid [Pending], Folate 17.1, Homocystine [Pending], Thyroid Stimulating Hormone (TSH) 0.045L, Hepatitis A IgM Antibody [Pending], Hepatitis B Surface Antigen [Pending], Hepatitis B Core IgM Antibody [Pending], Hepatitis C Antibody [Pending], HIV (1&2) Antibody Rapid Negative Height (Feet): 6 Height (Inches): 5.00 Weight (Pounds): 212 General Appearance: alert EENT: normal ENT inspection Neck: normal alignment Cardiovascular: normal peripheral pulses, normal rate, regular rhythm Respiratory/Chest: chest wall non-tender, lungs clear, normal breath sounds Abdomen: normal bowel sounds, non tender, soft Extremities: normal inspection Edema: no edema noted Arm (L), no edema noted Arm (R), no edema noted Leg (L), no edema noted Leg (R), no edema noted Pedal (L), no edema noted Pedal (R), no edema noted Generalized Neurologic: responsive, motor weakness Skin: normal pigmentation, warm/dry Joshua Rangel DO Sep 24, 2017 08:00
--- NOTE | 2017-09-24 09:22 | General Progress Note ---
Assessment/Plan Problem List: (1) UGIB (upper gastrointestinal bleed) ICD Codes: K92.2 - Gastrointestinal hemorrhage, unspecified SNOMED: 16222702 (2) Alcohol abuse ICD Codes: F10.10 - Alcohol abuse, uncomplicated SNOMED: 96062194 (3) Diabetes ICD Codes: E11.9 - Type 2 diabetes mellitus without complications SNOMED: 34154083 (4) Cirrhosis ICD Codes: K74.60 - Unspecified cirrhosis of liver SNOMED: 64837213 (5) Anemia ICD Codes: D64.9 - Anemia, unspecified SNOMED: 262778703 (6) Elevated LFTs ICD Codes: R79.89 - Other specified abnormal findings of blood chemistry SNOMED: 185914258, 510601405 Assessment/Plan s/p EGD yesterday no recurrent bleed decrease octreotide to 25 change protonix to Q12 clears Subjective ROS Limited/Unobtainable: Yes Allergies: Coded Allergies: No Known Allergies (Unverified , 11/07/15) Objective Last 24 Hour Vital Signs Date Time Temp Pulse Resp B/P (MAP) Pulse Ox O2 Delivery O2 Flow Rate FiO2 09/24/17 09:17 75 14 118/91 100 Room Air 09/24/17 08:00 98.7 75 15 126/76 100 Room Air 98.7 09/24/17 08:00 78 09/24/17 07:00 81 18 152/101 100 Room Air 09/24/17 06:00 80 15 130/84 94 Room Air 09/24/17 05:00 84 16 141/94 100 Room Air 09/24/17 04:00 78 09/24/17 04:00 97.5 89 18 134/106 100 Room Air 97.5 09/24/17 03:00 87 18 153/106 100 Room Air 09/24/17 02:00 87 16 151/81 100 Room Air 09/24/17 01:00 86 17 151/98 100 Room Air 09/24/17 00:00 97.1 82 17 142/83 94 Room Air 97.1 09/23/17 23:31 78 09/23/17 23:00 90 17 154/96 97 Room Air 09/23/17 22:00 90 18 159/101 99 Room Air 09/23/17 21:00 87 20 133/94 98 Room Air 09/23/17 20:15 149/73 6/2/18 20:00 98.4 98 19 149/93 98 Room Air 98.4 09/23/17 19:43 92 09/23/17 19:00 95 09/23/17 18:00 105 19 97/106 99 Room Air 09/23/17 17:00 95 19 117/106 99 Room Air 09/23/17 16:00 92 19 137/87 99 Room Air 09/23/17 15:00 90 15 156/83 99 Room Air 09/23/17 14:00 93 15 140/90 99 Room Air 09/23/17 13:00 90 15 90/66 99 Room Air 09/23/17 12:00 94 09/23/17 12:00 88 15 156/91 99 Room Air 09/23/17 10:34 89 19 99 09/23/17 10:33 105 20 99 09/23/17 10:00 90 15 138/80 99 Room Air Intake and Output 09/23/17 09/24/17 19:00 07:00 Intake Total 1725 ml 2875 ml Output Total 1550 ml 3000 ml Balance 175 ml -125 ml Intake Oral 0 ml 0 ml IV Total 1725 ml 2875 ml Output Urine Total 1550 ml 3000 ml # Voids 2 # Bowel Movements 3 Laboratory Tests 09/24/17 04:30: White Blood Count 9.2, Red Blood Count 2.40L, Hemoglobin 8.8L, Hematocrit 24.3L , Mean Corpuscular Volume 101H, Mean Corpuscular Hemoglobin 36.7H, Mean Corpuscular Hemoglobin Concent 36.3H, Red Cell Distribution Width 12.2, Platelet Count 69L, Mean Platelet Volume 10.0, Neutrophils (%) (Auto) , Lymphocytes (%) (Auto) , Monocytes (%) (Auto) , Eosinophils (%) (Auto) , Basophils (%) (Auto) , Differential Total Cells Counted 100, Neutrophils % ( Manual) 63, Lymphocytes % (Manual) 25, Monocytes % (Manual) 9, Eosinophils % ( Manual) 3, Basophils % (Manual) 0, Band Neutrophils 0, Platelet Estimate DecreasedL, Platelet Morphology Normal, Hypochromasia , Macrocytosis 1+, Haptoglobin [Pending], Prothrombin Time 11.4, Prothromb Time International Ratio 1.1, Activated Partial Thromboplast Time 27, PTT Mixing Study [Pending], APTT Patient/Control Mix [Pending], Mix PTT Incubation Time [Pending], Mix PTT Normal/Saline 1:1 Immediate [Pending], Thrombin Time Normal Plasma [Pending], Sodium Level 137, Potassium Level 3.6, Chloride Level 102, Carbon Dioxide Level 29, Anion Gap 6, Blood Urea Nitrogen 9, Creatinine 0.9, Estimat Glomerular Filtration Rate > 60, Glucose Level 124H, Calcium Level 7.9L, Phosphorus Level 2.6, Magnesium Level 1.7L, Iron Level 79, Total Iron Binding Capacity 249L, Percent Iron Saturation 32, Unsaturated Iron Binding 170, Soluble Transferrin Receptor [Pending], Ferritin 1073H, Total Bilirubin 2.0H, Direct Bilirubin 1.3H , Aspartate Amino Transf (AST/SGOT) 225H, Alanine Aminotransferase (ALT/SGPT) 148H, Alkaline Phosphatase 91, Lactate Dehydrogenase 259H, Total Protein 6.1L, Albumin 2.7L, Globulin 3.4, Albumin/Globulin Ratio 0.8L, Vitamin B12 Level 537, Methylmalonic Acid [Pending], Folate 17.1, Homocystine [Pending], Thyroid Stimulating Hormone (TSH) 0.045L, Hepatitis A IgM Antibody [Pending], Hepatitis B Surface Antigen [Pending], Hepatitis B Core IgM Antibody [Pending], Hepatitis C Antibody [Pending], HIV (1&2) Antibody Rapid Negative Height (Feet): 6 Height (Inches): 5.00 Weight (Pounds): 212 General Appearance: alert EENT: normal ENT inspection Neck: supple Cardiovascular: normal rate Respiratory/Chest: lungs clear Abdomen: normal bowel sounds, non tender, soft Extremities: non-tender Christo Duke MD Sep 24, 2017 09:22
--- NOTE | 2017-09-24 09:33 | Pulmonolgy Critical Care Note ---
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 - Objective Last 24 Hour Vital Signs Date Time Temp Pulse Resp B/P (MAP) Pulse Ox O2 Delivery O2 Flow Rate FiO2 09/24/17 09:17 75 14 118/91 100 Room Air 09/24/17 09:00 75 17 118/91 100 Room Air 09/24/17 08:00 98.7 75 15 126/76 100 Room Air 98.7 09/24/17 08:00 78 09/24/17 07:00 81 18 152/101 100 Room Air 09/24/17 06:00 80 15 130/84 94 Room Air 09/24/17 05:00 84 16 141/94 100 Room Air 09/24/17 04:00 78 09/24/17 04:00 97.5 89 18 134/106 100 Room Air 97.5 09/24/17 03:00 87 18 153/106 100 Room Air 09/24/17 02:00 87 16 151/81 100 Room Air 09/24/17 01:00 86 17 151/98 100 Room Air 09/24/17 00:00 97.1 82 17 142/83 94 Room Air 97.1 09/23/17 23:31 78 09/23/17 23:00 90 17 154/96 97 Room Air 09/23/17 22:00 90 18 159/101 99 Room Air 09/23/17 21:00 87 20 133/94 98 Room Air 09/23/17 20:15 149/73 09/23/17 20:00 98.4 98 19 149/93 98 Room Air 98.4 09/23/17 19:43 92 09/23/17 19:00 95 09/23/17 18:00 105 19 97/106 99 Room Air 09/23/17 17:00 95 19 117/106 99 Room Air 09/23/17 16:00 92 19 137/87 99 Room Air 09/23/17 15:00 90 15 156/83 99 Room Air 09/23/17 14:00 93 15 140/90 99 Room Air 09/23/17 13:00 90 15 90/66 99 Room Air 09/23/17 12:00 94 09/23/17 12:00 88 15 156/91 99 Room Air 09/23/17 10:34 89 19 99 09/23/17 10:33 105 20 99 09/23/17 10:00 90 15 138/80 99 Room Air Status: awake Condition: critical Neck: full ROM Lungs: clear Heart: HR/BP unstable Abdomen: soft, feeding tube Extremities: no C/C/E Critical Care - Subjective ROS Limited/Unobtainable: No Condition: critical EKG Rhythm: Sinus Rhythm Fluids: d5ns 100 cc/hour Drips: sandostatin, protonix I&O: Intake and Output 09/23/17 09/24/17 19:00 07:00 Intake Total 1725 ml 2875 ml Output Total 1550 ml 3000 ml Balance 175 ml -125 ml Intake Oral 0 ml 0 ml IV Total 1725 ml 2875 ml Output Urine Total 1550 ml 3000 ml # Voids 2 # Bowel Movements 3 Labs: Laboratory Tests Test 09/24/17 04:30 White Blood Count 9.2 K/UL (4.8-10.8) Red Blood Count 2.40 M/UL (4.70-6.10) L Hemoglobin 8.8 G/DL (14.2-18.0) L Hematocrit 24.3 % (42.0-52.0) L Mean Corpuscular Volume 101 FL (80-99) H Mean Corpuscular Hemoglobin 36.7 PG (27.0-31.0) H Mean Corpuscular Hemoglobin Concent 36.3 G/DL (32.0-36.0) H Red Cell Distribution Width 12.2 % (11.6-14.8) Platelet Count 69 K/UL (150-450) L Mean Platelet Volume 10.0 FL (6.5-10.1) Neutrophils (%) (Auto) % (45.0-75.0) Lymphocytes (%) (Auto) % (20.0-45.0) Monocytes (%) (Auto) % (1.0-10.0) Eosinophils (%) (Auto) % (0.0-3.0) Basophils (%) (Auto) % (0.0-2.0) Differential Total Cells Counted 100 Neutrophils % (Manual) 63 % (45-75) Lymphocytes % (Manual) 25 % (20-45) Monocytes % (Manual) 9 % (1-10) Eosinophils % (Manual) 3 % (0-3) Basophils % (Manual) 0 % (0-2) Band Neutrophils 0 % (0-8) Platelet Estimate Decreased L Platelet Morphology Normal Hypochromasia Macrocytosis 1+ Haptoglobin Pending Prothrombin Time 11.4 SEC (9.30-11.50) Prothromb Time International Ratio 1.1 (0.9-1.1) Activated Partial Thromboplast Time 27 SEC (23-33) PTT Mixing Study Pending APTT Patient/Control Mix Pending Mix PTT Incubation Time Pending Mix PTT Normal/Saline 1:1 Immediate Pending Thrombin Time Normal Plasma Pending Sodium Level 137 MMOL/L (136-145) Potassium Level 3.6 MMOL/L (3.5-5.1) Chloride Level 102 MMOL/L (98-107) Carbon Dioxide Level 29 MMOL/L (21-32) Anion Gap 6 mmol/L (5-15) Blood Urea Nitrogen 9 mg/dL (7-18) Creatinine 0.9 MG/DL (0.55-1.30) Estimat Glomerular Filtration Rate > 60 mL/min (>60) Glucose Level 124 MG/DL (74-106) H Calcium Level 7.9 MG/DL (8.5-10.1) L Phosphorus Level 2.6 MG/DL (2.5-4.9) Magnesium Level 1.7 MG/DL (1.8-2.4) L Iron Level 79 ug/dL (50-175) Total Iron Binding Capacity 249 ug/dL (250-450) L Percent Iron Saturation 32 % (15-50) Unsaturated Iron Binding 170 ug/dL (112-346) Soluble Transferrin Receptor Pending Ferritin 1073 NG/ML (8-388) H Total Bilirubin 2.0 MG/DL (0.2-1.0) H Direct Bilirubin 1.3 MG/DL (0.0-0.3) H Aspartate Amino Transf (AST/SGOT) 225 U/L (15-37) H Alanine Aminotransferase (ALT/SGPT) 148 U/L (12-78) H Alkaline Phosphatase 91 U/L (46-116) Lactate Dehydrogenase 259 U/L (81-234) H Total Protein 6.1 G/DL (6.4-8.2) L Albumin 2.7 G/DL (3.4-5.0) L Globulin 3.4 g/dL Albumin/Globulin Ratio 0.8 (1.0-2.7) L Vitamin B12 Level 537 PG/ML (193-986) Methylmalonic Acid Pending Folate 17.1 NG/ML (8.6-58.9) Homocystine Pending Thyroid Stimulating Hormone (TSH) 0.045 uiU/mL (0.358-3.740) Hepatitis A IgM Antibody Pending Hepatitis B Surface Antigen Pending Hepatitis B Core IgM Antibody Pending Hepatitis C Antibody Pending HIV (1&2) Antibody Rapid Negative (NEGATIVE) Gerald Martino MD Sep 24, 2017 09:33
[2017-09-24] MEDS ORDERED: D5NS 1000ml IV ONE ×2 (11:08→15:19)
[2017-09-24] MEDS ORDERED: Octreotide Acetate 500 MCG in Sodium Chloride 500ML 499 ML IV SCH (14:45)
[2017-09-24] MEDS ORDERED: Folic Acid 1 MG, Magnesium Sulfate 2,000 MG, Multivitamin - 12 Injection 10 ML in NS w/... IV SCH (16:00)
--- NOTE | 2017-09-24 16:58 | Cardiology Report ---
APPROVED REPORT EKG Measurement Heart [id number] Normal sinus rhythm Left axis deviation Possible Anterior infarct, age undetermined Abnormal ECG
[2017-09-24] MEDS: Morphine Sulfate 4mg/ml Inj IVP PRN (18:40)
--- NOTE | 2017-09-24 20:15 | Consultation ---
Consult Note Assessment/Plan [id number] job ID Alejo Abraham MD Sep 24, 2017 20:15
[2017-09-24] MEDS ORDERED: Miralax 17gm pkt ORAL PRN (21:00)
[2017-09-24] MEDS ORDERED: Pantoprazole Inj IVP SCH (21:00)
[2017-09-24] MEDS: Pantoprazole Inj IVP SCH (21:09)
[2017-09-25] MEDS: D5NS 1,000 ML IV SCH (01:16)
[2017-09-25] MEDS: Morphine Sulfate 4mg/ml Inj IVP PRN ×2 (01:17→07:58)
[2017-09-25 01:57] VITALS: BP 140/88
[2017-09-25] MEDS: Octreotide Acetate 500 MCG in Sodium Chloride 500ML 499 ML IV SCH (06:36)
--- NOTE | 2017-09-25 10:24 | GI Progress Note ---
Assessment/Plan Problems: (1) Alcohol abuse ICD Codes: F10.10 - Alcohol abuse, uncomplicated SNOMED: 02495144 (2) UGIB (upper gastrointestinal bleed) ICD Codes: K92.2 - Gastrointestinal hemorrhage, unspecified SNOMED: 93890875 (3) Cirrhosis ICD Codes: K74.60 - Unspecified cirrhosis of liver SNOMED: 70305733 (4) Anemia ICD Codes: D64.9 - Anemia, unspecified SNOMED: 549660501 (5) Elevated LFTs ICD Codes: R79.89 - Other specified abnormal findings of blood chemistry SNOMED: 964476142, 181717090 Status: stable Status Narrative Discussed with Dr. Duke. Assessment/Plan Esophageal varices, status post banding, most probably the source of bleeding. hep panel pending stable H&H ambulatory okay for DC per GI standpoint adv diet dc octreotide, ppi gtt consider propranolol for portal HTN, to be managed by PCP Rx written, given to RN >> Protonix 40 mg PO x 1 month, fu with PCP ETOH cessation education given and acknowledged by patient fu labs Subjective Gastrointestinal/Abdominal: Reports: no symptoms Subjective patient expressing he wants to go home, has court denies abdominal pain no recurrent active gi bleed Objective Last 24 Hour Vital Signs Date Time Temp Pulse Resp B/P (MAP) Pulse Ox O2 Delivery O2 Flow Rate FiO2 09/25/17 07:58 98.6 09/25/17 01:57 98.6 88 20 140/88 98 Room Air 98.6 09/25/17 01:47 99.5 09/25/17 01:17 99.5 09/24/17 21:00 99.5 81 20 145/99 98 Room Air 99.5 09/24/17 16:40 97.8 77 18 145/85 96 Room Air 97.8 09/24/17 16:14 98.4 87 18 141/96 98 Room Air 98.4 09/24/17 16:04 98.4 87 18 141/98 98 Room Air 98.4 09/24/17 14:00 81 19 130/92 100 Room Air 09/24/17 13:09 78 17 129/90 100 Room Air 09/24/17 12:00 75 09/24/17 12:00 98.0 78 16 133/89 100 Room Air 98.0 09/24/17 11:00 80 16 145/96 100 Room Air Intake and Output 09/24/17 09/25/17 19:00 07:00 Intake Total 2205 ml 600 ml Output Total 3175 ml 925 ml Balance -970 ml -325 ml Intake Oral 1180 ml 600 ml IV Total 1025 ml Output Urine Total 3175 ml 925 ml # Voids 7 Height (Feet): 6 Height (Inches): 5.00 Weight (Pounds): 215 General Appearance: WD/WN, no apparent distress, alert Cardiovascular: normal rate Respiratory/Chest: normal breath sounds, no respiratory distress Abdominal Exam: normal bowel sounds, non tender, soft Extremities: normal range of motion, non-tender Timothy Gregg NP Sep 25, 2017 10:24
[2017-09-25] MEDS ORDERED: PROTONIX40 MG ORAL (10:58)
[2017-09-25] MEDS: Pantoprazole Inj IVP SCH (11:00)
[2017-09-25] MEDS ORDERED: D5NS 1000ml IV ONE (11:30)
--- NOTE | 2017-09-25 12:15 | Consultation ---
DATE OF CONSULTATION: 09/24/2017 HEMATOLOGY/ONCOLOGY CONSULTATION REQUESTING PHYSICIAN: Joshua Rangel D.O. REASON FOR CONSULTATION: Evaluation of anemia and leukopenia. IDENTIFICATION DATA: Dear Dr. Joshua Rangel, The patient is a pleasant 51-year-old male at this time presents to the [facility] with past medical history significant for GI bleed, opioid dependence, chronic pain, and alcohol intoxication, has been seen by Pulmonary team as well as GI team with upper GI bleed, noted to be anemic on presentation. Hematology service consult for evaluation and treatment. PAST MEDICAL HISTORY: As noted above. PAST SURGICAL HISTORY: None known. MEDICATIONS: Octreotide, pantoprazole, morphine, temazepam, Zofran, Tylenol, and dopamine. ALLERGIES: Reviewed and none noted. SOCIAL HISTORY: Positive for alcohol. No other 01:05 available. PHYSICAL EXAMINATION: VITAL SIGNS: Reviewed. GI: No distress. PULMONARY: Decreased breath sounds. Some crackles at the bases. CARDIOVASCULAR: Regular rate. No S3 or S4. ABDOMEN: Soft, nontender, and nondistended. EXTREMITIES: No cyanosis, swelling, or edema. LABORATORY AND DIAGNOSTIC DATA: WBC 9.2, hemoglobin 8.8, hematocrit 24, MCV 101, platelet count 69,000. 01:23 pending. BUN of 9 and creatinine 0.9. INR 1.1. 01:28 pending. HIV is negative. Imaging reviewed. ASSESSMENT AND RECOMMENDATIONS: 1. Thrombocytopenia, likely secondary to underlying cirrhosis of the liver, hepatosplenomegaly, and portal hypertension. 2. Anemia due to underlying chronic disease. Continue to closely monitor. 3. Anemia due to underlying gastrointestinal bleed, status post esophagogastroduodenoscopy, status post variceal ligation. Continue on treatment with Protonix. 4. Coagulopathy, likely secondary to underlying liver disease, status post administration of vitamin K. 5. Hold off on any transfusions at this time. 6. Monocytosis, probably secondary to reactive process. 7. Alcohol intoxication. Monitor for withdrawal. I appreciate consultation. Alejo Abraham M.D. DR: Loreta JOB#: [id number] CC:
--- NOTE | 2017-09-25 16:53 | General Progress Note ---
Assessment/Plan Status: stable Assessment/Plan 1. Thrombocytopenia, likely secondary to underlying cirrhosis of the liver, hepatosplenomegaly, and portal hypertension. 2. Anemia due to underlying chronic disease. Continue to closely monitor. 3. Anemia due to underlying gastrointestinal bleed, status post esophagogastroduodenoscopy, status post variceal ligation. Continue on treatment with Protonix. 4. Coagulopathy, likely secondary to underlying liver disease, status post administration of vitamin K. Subjective Date patient seen: Sep 25, 2017 Allergies: Coded Allergies: No Known Allergies (Unverified , 11/07/15) All Systems: reviewed and negative except above Subjective Pt is stable and medically cleared for d/c to home for self-care. No signs of acute medical distress. Objective Last 24 Hour Vital Signs Date Time Temp Pulse Resp B/P (MAP) Pulse Ox O2 Delivery O2 Flow Rate FiO2 09/25/17 08:28 98.6 09/25/17 07:58 98.6 09/25/17 01:57 98.6 88 20 140/88 98 Room Air 98.6 09/25/17 01:17 99.5 09/24/17 21:00 99.5 81 20 145/99 98 Room Air 99.5 Intake and Output 09/24/17 09/25/17 19:00 07:00 Intake Total 2205 ml 600 ml Output Total 3175 ml 925 ml Balance -970 ml -325 ml Intake Oral 1180 ml 600 ml IV Total 1025 ml Output Urine Total 3175 ml 925 ml # Voids 7 Height (Feet): 6 Height (Inches): 5.00 Weight (Pounds): 215 General Appearance: alert EENT: PERRL/EOMI, normal ENT inspection Neck: normal alignment Cardiovascular: normal rate Respiratory/Chest: lungs clear Abdomen: non tender Alejo Abraham MD Sep 25, 2017 16:53
== END 2017-09-25 11:31 | disposition home or self-care (01) | DRG 432 ==
LOC: EMR 16:00 → EDBEDREQ 17:16 → EDBEDREQSVC 17:16 → EDBEDREQ 18:42 → ICU 19:01 → 4W 09-24 15:44
PROC: 06L38CZ Occlusion of Esophageal Vein with Extraluminal Device, Via Natural or Artificial Opening Endoscopic (ICD-10-PCS; principal; 2017-09-23 08:00)
DX: K70.30 Alcoholic cirrhosis of liver without ascites (principal); I85.11 Secondary esophageal varices with bleeding; R57.8 Other shock; D68.4 Acquired coagulation factor deficiency; K76.6 Portal hypertension; D50.0 Iron deficiency anemia secondary to blood loss (chronic); D69.59 Other secondary thrombocytopenia; F10.229 Alcohol dependence with intoxication, unspecified; Y90.8 Blood alcohol level of 240 mg/100 ml or more; E88.09 Other disorders of plasma-protein metabolism, not elsewhere classified; E11.9 Type 2 diabetes mellitus without complications; G89.29 Other chronic pain
CPT/HCPCS: 36415; 80053; 80329; 82150; 82247; 82248; 82607; 82728; 82746; 83010; 83090; 83540; 83550; 83615; 83690; 83735; 83921; 84100; 84238; 84443; 85007; 85025; 85610; 85730; 86703; 86705; 86709; 86803; 86850; 86900; 86901; 86920; 87081; 87340; 93005; 93970; 94003; 94150; 97803; 99291; J0171; J2405; J2765

== ENCOUNTER 2017-11-04 11:11 | Emergency (ER) | payer MEDICAID ==
[~2017-11-04] VITALS: Ht 185.4 cm; Wt 95.3 kg
[~2017-11-04 11:11] MED LIST changes: +NKM; +PROTONIX40 MG ORAL
[2017-11-04 11:37] VITALS: BP 134/83
--- NOTE | 2017-11-04 13:01 | Diagnostic Imaging Report ---
EXAM: CT Head Without Intravenous Contrast CLINICAL HISTORY: DIZZY TECHNIQUE: Axial computed tomography images of the head/brain without intravenous contrast. CTDI is 70.38 mGy and DLP is 1449 mGy-cm. One or more of the following dose reduction techniques were used: automated exposure control, adjustment of the mA and/or kV according to patient size, use of iterative reconstruction technique. COMPARISON: No relevant prior studies available. FINDINGS: No intracranial hemorrhage, abnormal intra- or extra-axial collections or parenchymal lesions are seen. There are involutional changes with prominence of the sulci, basal cisterns and ventricles. Scattered white matter hypoattenuations are present, likely from small vessel disease. The morrison-white differentiation is preserved. Streak artifact over the left brainstem. No evidence of mass effect, midline shift, or edema. Old medial orbital wall fracture with fat herniation and tenting of the of the medial rectus muscle. The visualized portions of the paranasal sinuses are clear. IMPRESSION: 1. No acute intracranial process. 2. Involutional changes with small vessel disease.
[2017-11-04 13:26] VITALS: BP 123/81
[2017-11-04 13:27] VITALS: BP 123/81
--- NOTE | 2017-11-04 13:35 | Diagnostic Imaging Report ---
EXAM: XR Left Knee, 3 views CLINICAL HISTORY: PAIN TECHNIQUE: Three views of the left knee. COMPARISON: No relevant prior studies available. FINDINGS: Bones/joints: No joint effusion. No acute fracture. No dislocation. Soft tissues: Prepatellar soft tissue swelling. Surgical clip anterior posterior knee. Other findings: IMPRESSION: 1. Prepatellar soft tissue swelling. 2. No fracture or malalignment.
--- NOTE | 2017-11-04 13:37 | Diagnostic Imaging Report ---
EXAM: XR Right Knee, 3 views CLINICAL HISTORY: PAIN TECHNIQUE: Three views of the right knee. COMPARISON: No relevant prior studies available. FINDINGS: Bones/joints: No acute fracture. No dislocation. No joint effusion. Soft tissues: Prepatellar soft tissue swelling. Carlos overlying the knee. IMPRESSION: 1. Prepatellar soft tissue swelling. 2. No fracture or malalignment.
--- NOTE | 2017-11-05 07:34 | Emergency Room Report ---
History of Present Illness General Chief Complaint: Generalized Weakness Source: Patient, Medical Record Present Illness HPI 51-year-old male presents ED complaining of weakness in his legs. States it is been intermittent for one week. States he's had this problem for many years now. Denies any weakness at this time. Denies any sensory deficits. Denies any slurred speech or facial droop. Denies any chest pain or shortness of breath. Patient notes history of alcohol use. Patient states his mother told him to come to the ER because he may have had a stroke. No other aggravating relieving factors. Denies any other associated symptoms Allergies: Coded Allergies: No Known Allergies (Unverified , 11/07/15) Patient History Past Medical History: GI bleed Past Surgical History: none Pertinent Family History: none Social History: Reports: alcohol use; Denies: smoking, drug use Immunizations: UTD Reviewed Nursing Documentation: PMH: Agreed; PSxH: Agreed Nursing Documentation-PMH Past Medical History: No History, Except For Hx Cardiac Problems: Yes Hx Hypertension: Yes Hx Cancer: No Hx Gastrointestinal Problems: Yes - gi bleeding Hx Neurological Problems: No Review of Systems All Other Systems: negative except mentioned in HPI Physical Exam Vital Signs Date Time Temp Pulse Resp B/P (MAP) Pulse Ox O2 Delivery O2 Flow Rate FiO2 11/04/17 11:20 98.2 78 19 134/83 97 Room Air 98.2 Sp02 EP Interpretation: reviewed, normal General Appearance: no apparent distress, alert, GCS 15, non-toxic Head: normocephalic, atraumatic Eyes: bilateral eye normal inspection, bilateral eye PERRL ENT: hearing grossly normal, normal pharynx, no angioedema, normal voice Neck: full range of motion, supple/symm/no masses Respiratory: chest non-tender, lungs clear, normal breath sounds, speaking full sentences Cardiovascular #1: regular rate, rhythm, no edema Cardiovascular #2: 2+ carotid (R), 2+ carotid (L), 2+ radial (R), 2+ radial (L) , 2+ dorsalis pedis (R), 2+ dorsalis pedis (L) Gastrointestinal: normal bowel sounds, non tender, soft, non-distended, no guarding, no rebound Rectal: deferred Genitourinary: normal inspection, no CVA tenderness Musculoskeletal: back normal, gait/station normal, normal range of motion, non- tender Neurologic: alert, oriented x3, responsive, manager financial III-XII nml as tested, motor strength/tone normal, sensory intact, cerebellar normal, normal gait, speech normal Psychiatric: judgement/insight normal, memory normal, mood/affect normal, no suicidal/homicidal ideation Reflexes: 3+ bicep (R), 3+ bicep (L), 3+ tricep (R), 3+ tricep (L), 3+ knee (R) , 3+ knee (L) Skin: normal color, no rash, warm/dry, well hydrated Lymphatic: no adenopathy Medical Decision Making Diagnostic Impression: Primary Impression: Episode of generalized weakness ER Course Hospital Course 51-year-old male presents ED complaining of intermittent weakness in his legs for many years now. Differential diagnoses include: arthritis, ETOH intoxication, CVA Clinical course Patient placed on stretcher. After initial history, physical exam reveals middle-aged male in no acute distress. There is some minimal tenderness to both knees. Full range of motion. 5 out of 5 motor strength in both legs. No sensory deficits. Cranial nerves II through XII grossly intact. No slurred speech or facial droop. Upper extremities 5 out of 5 motor strength with no sensory deficits I ordered CT head which was unremarkable X-rays of both knees showed no evidence of osteoarthritis I discussed findings with the patient. Patient had been admitted here this year for GI bleed secondary to alcohol use. Patient has history of chronic alcoholism. I do not believe his findings are consistent with CVA. Patient likely has vitamin deficiency secondary to chronic alcohol use versus some evidence of alcohol withdrawal as he drinks daily. There is no further acute interventions required at this time. No signs of acute withdrawal or DTs at this time. Patient is safe for discharge with close follow-up with PMD Diagnosis - episode of generalized weakness Stable and discharged to home. Followup with PMD. Return to ED if symptoms recur or worsen Other X-Ray Diagnostic Results Other X-Ray Diagnostic Results #1: X-Ray ordered: R knee # of Views/Limited Vs Complete: 3 View Indication: Pain EP Interpretation: Yes Interpretation: no dislocation, no soft tissue swelling, no fractures Impression: No acute disease Electronically Signed by: Electronically signed by Mario Kan MD Other X-Ray Diagnostic Results #2: X-Ray ordered: L knee # of Views/Limited Vs Complete: 3 View Indication: Pain EP Interpretation: Yes Interpretation: no dislocation, no soft tissue swelling, no fractures Impression: No acute disease Electronically Signed by: Electronically signed by Mario Kan MD CT/MRI/US Diagnostic Results CT/MRI/US Diagnostic Results : Imaging Test Ordered: CT Head Impression no acute process Last Vital Signs Date Time Temp Pulse Resp B/P (MAP) Pulse Ox O2 Delivery O2 Flow Rate FiO2 11/04/17 13:27 98.2 74 17 123/81 99 Room Air 98.2 Status: improved Disposition: HOME, SELF-CARE Condition: Stable Referrals: NOT CHOSEN IPA/,REFERRING (PCP) Patient Instructions: Alcohol Abuse and Nutrition, Weakness Mario Kan MD Nov 05, 2017 07:34
== END 2017-11-04 13:29 | disposition home or self-care (01) ==
LOC: EMR 11:44
DX: R53.1 Weakness (principal); I10 Essential (primary) hypertension; Z87.19 Personal history of other diseases of the digestive system
CPT/HCPCS: 70450; 99284

== ENCOUNTER 2017-11-10 22:00 | Emergency (ER) | payer MEDICAID ==
[~2017-11-10] VITALS: Ht 193 cm; Wt 95.3 kg
--- NOTE | 2017-11-10 22:15 | Emergency Room Report ---
History of Present Illness General Chief Complaint: General Complaint Source: Patient Present Illness HPI Patient present's complaining that he has weakness in both of his legs Patient reports that he is not sure exactly was causing the discomfort He reports that he had previous back problems Upon arrival the patient is verbally abusive Cursing at the staff Patient reports that his physician is here in this hospital And works in the morning time however is not able to provide a name Otherwise denies any chest pain Denies any recent fall Patient was admitted recently with possible GI bleeding Also was here after that regarding leg weakness Allergies: Coded Allergies: No Known Allergies (Unverified , 11/10/17) Patient History Past Medical History: see triage record Pertinent Family History: none Reviewed Nursing Documentation: PMH: Agreed; PSxH: Agreed Nursing Documentation-PMH Past Medical History: No History, Except For Hx Cardiac Problems: Yes Hx Hypertension: Yes Hx Cancer: No Hx Gastrointestinal Problems: Yes - gi bleeding Hx Neurological Problems: No Review of Systems All Other Systems: negative except mentioned in HPI Physical Exam Vital Signs Date Time Temp Pulse Resp B/P (MAP) Pulse Ox O2 Delivery O2 Flow Rate FiO2 11/10/17 22:00 98.1 73 16 130/86 98 Room Air 98.1 Sp02 EP Interpretation: reviewed, normal General Appearance: no apparent distress Head: normocephalic, atraumatic Eyes: bilateral eye PERRL, bilateral eye EOMI ENT: normal pharynx, no angioedema Neck: full range of motion, supple Respiratory: lungs clear Cardiovascular #1: regular rate, rhythm, no edema Gastrointestinal: non tender, soft Musculoskeletal: other - Patient moving both legs while sitting in the chair however when asked to stand reports that he cannot move his legs Neurologic: alert, oriented x3, responsive Skin: no rash Medical Decision Making Diagnostic Impression: Primary Impression: Encounter for generalized patient complaints ER Course Patient presents with complaints of leg weakness He has had similar presentation recently Patient is observed moving his legs There is significant malingering at this time with this patient Initially patient cursing at staff and extremely abusive Patient was removed from the emergency room however contacted 911 again Paramedics and dispatch arrived and patient was placed back into a bed in the ER Patient has this time resting will have social work consult as needed in the morning Patient was also pending further lower back MRI Last Vital Signs Date Time Temp Pulse Resp B/P (MAP) Pulse Ox O2 Delivery O2 Flow Rate FiO2 7/20/18 22:00 98.1 73 16 130/86 98 Room Air 98.1 Status: improved Condition: Stable Signed Out To: on coming physician Additional Instructions: Patient is provided with the discharge instructions notified to follow up with primary doctor in the next 2-3 days otherwise return to the er with any worsening symptoms. Please note that this report is being documented using [employer] technology. This can lead to erroneous entry secondary to incorrect interpretation by the dictating instrument. Keri Aguiar DO Nov 10, 2017 22:15
[2017-11-11] MEDS ORDERED: Gadavist 7.5mMol/7.5ml vial IV PRN (06:45)
--- NOTE | 2017-11-11 06:55 | Emergency Room Report ---
History of Present Illness General Chief Complaint: General Complaint Source: Patient Present Illness HPI This patient was turned over to me by Dr. Aguiar. This patient is known to [facility]. The patient is a homeless male with a history of chronic alcoholism and liver cirrhosis. He was recently admitted here to [facility] for possible upper GI bleed. The patient is complaining of leg weakness. Apparently, he was seen a couple days ago for the same complaint. He underwent laboratory workup and a CT exam that was unremarkable. The patient returned last night for the same complaint. I reassessed this patient. The patient states that he has had increasing frequently of his legs giving out. He states he also has low back pain. He states that he's noticed over the past week that his legs will intermittently "give out." He denies fever or chills. He denies nausea or vomiting. He denies trauma or injury. However, he states that when he is walking he will suddenly fall as his legs will stop working. He has no other complaints. Allergies: Coded Allergies: No Known Allergies (Unverified , 11/10/17) Patient History Past Medical History: see triage record, other - Cirrhosis, GI bleed, anemia, thrombocytopenia, ETOH abuse, Homeless Social History: Reports: alcohol use Reviewed Nursing Documentation: PMH: Agreed; PSxH: Agreed Nursing Documentation-PMH Past Medical History: No History, Except For Hx Cardiac Problems: Yes Hx Hypertension: Yes Hx Cancer: No Hx Gastrointestinal Problems: Yes - gi bleeding Hx Neurological Problems: No Review of Systems All Other Systems: negative except mentioned in HPI Physical Exam Vital Signs Date Time Temp Pulse Resp B/P (MAP) Pulse Ox O2 Delivery O2 Flow Rate FiO2 11/10/17 22:00 98.1 73 16 130/86 98 Room Air 98.1 Sp02 EP Interpretation: reviewed, normal General Appearance: no apparent distress, alert, GCS 15, non-toxic Head: normocephalic, atraumatic Eyes: bilateral eye normal inspection, bilateral eye PERRL ENT: hearing grossly normal, normal pharynx, no angioedema, normal voice Neck: full range of motion, supple/symm/no masses Respiratory: chest non-tender, lungs clear, normal breath sounds, no respiratory distress, no retraction, no accessory muscle use, speaking full sentences Cardiovascular #1: regular rate, rhythm, no edema Rectal: deferred Musculoskeletal: normal range of motion, other - PT non-compliant with exam Neurologic: alert, oriented x3, responsive, speech normal, other - Patient non- compliant with exam. Psychiatric: judgement/insight normal, memory normal, mood/affect normal, no suicidal/homicidal ideation Skin: normal color, no rash, warm/dry, well hydrated Medical Decision Making Diagnostic Impression: Primary Impression: Encounter for generalized patient complaints ER Course This patient is refusing to walk. He presented twice this week with the same complaint. Although, I suspected that this patient is malingering, I felt that I should obtain an MRI of the lumbar spine as a precaution given the patient's complaints. I was unable to properly examine this patient to truly assess his neurologic status secondary the patient not complying with the exam. Therefore , I felt that I should obtain imaging with the assumption that the patient is experiencing true weakness. Prior to the MRI, the patient was able to walk when he was given a cane. He did have a unusual gait but was able to ambulate. The patient did get the MRI of his lumbar spine, however, he has an appointment with a group social worker office in [facility] and left the emergency department before the results of the MRI was obtained. He left AGAINST MEDICAL ADVICE. After the patient left, I did get the report of the MRI and there is disc bulging at multiple levels in the lumbar spine and at T11 and 12. There is some central canal stenosis and foraminal narrowing. There is no definitive surgical syndrome identified. The patient is well-known here to [facility] in and likely will return at some point. He did not leave any contact information. Regardless, the patient was ambulatory and competent and left the emergency department because of his own desire to make his appointment downtown. Laboratory workup is at this patient's baseline. Laboratory Tests Test 11/11/17 07:37 White Blood Count 6.4 K/UL (4.8-10.8) Red Blood Count 4.16 M/UL (4.70-6.10) L Hemoglobin 12.0 G/DL (14.2-18.0) L Hematocrit 36.9 % (42.0-52.0) L Mean Corpuscular Volume 89 FL (80-99) Mean Corpuscular Hemoglobin 28.8 PG (27.0-31.0) Mean Corpuscular Hemoglobin Concent 32.4 G/DL (32.0-36.0) Red Cell Distribution Width 16.0 % (11.6-14.8) H Platelet Count 222 K/UL (150-450) Mean Platelet Volume 6.9 FL (6.5-10.1) Neutrophils (%) (Auto) 45.3 % (45.0-75.0) Lymphocytes (%) (Auto) 40.3 % (20.0-45.0) Monocytes (%) (Auto) 8.4 % (1.0-10.0) Eosinophils (%) (Auto) 2.4 % (0.0-3.0) Basophils (%) (Auto) 3.6 % (0.0-2.0) H Urine Color Yellow Urine Appearance Clear Urine pH 5 (4.5-8.0) Urine Specific [place] 1.030 (1.005-1.035) Urine Protein 1+ (NEGATIVE) H Urine Glucose (UA) Negative (NEGATIVE) Urine Ketones Negative (NEGATIVE) Urine Occult Blood Negative (NEGATIVE) Urine Nitrite Negative (NEGATIVE) Urine Bilirubin Negative (NEGATIVE) Urine Urobilinogen 4 MG/DL (0.0-1.0) H Urine Leukocyte Esterase Negative (NEGATIVE) Urine RBC 0 /HPF (0 - 0) Urine WBC 0-2 /HPF (0 - 0) Urine Squamous Epithelial Cells Occasional /LPF Urine Bacteria Occasional /HPF (NONE) Urine Mucus Moderate /LPF (NONE/OCC) H Sodium Level Pending Potassium Level Pending Chloride Level Pending Carbon Dioxide Level Pending Blood Urea Nitrogen Pending Creatinine Pending Estimate Glomerular Filtration Rate Pending Glucose Level Pending Calcium Level Pending Total Bilirubin Pending Aspartate Amino Transferase (AST) Pending Alanine Aminotransferase (ALT) Pending Alkaline Phosphatase Pending Total Protein Pending Albumin Pending Globulin Pending Urine Opiates Screen Negative (NEGATIVE) Urine Barbiturates Screen Negative (NEGATIVE) Phencyclidine (PCP) Screen Negative (NEGATIVE) Urine Amphetamines Screen Negative (NEGATIVE) Urine Benzodiazepines Screen Negative (NEGATIVE) Urine Cocaine Screen Negative (NEGATIVE) Urine Marijuana (THC) Screen Negative (NEGATIVE) Serum Alcohol Pending CT/MRI/US Diagnostic Results CT/MRI/US Diagnostic Results : Imaging Test Ordered: MRI L-spine Impression See official report in EMR Last Vital Signs Date Time Temp Pulse Resp B/P (MAP) Pulse Ox O2 Delivery O2 Flow Rate FiO2 11/10/17 22:00 98.1 73 16 130/86 98 Room Air 98.1 Disposition: AGAINST MEDICAL ADVICE Condition: Stable Referrals: NOT CHOSEN IPA/MD,REFERRING (PCP) Additional Instructions: Patient is provided with the discharge instructions notified to follow up with primary doctor in the next 2-3 days otherwise return to the er with any worsening symptoms. Please note that this report is being documented using [employer] technology. This can lead to erroneous entry secondary to incorrect interpretation by the dictating instrument. Marianne Pearl DO Nov 11, 2017 06:55
[2017-11-11 07:53] LABS: APPEARANCE,URINE CLEAR; BILIRUBIN, URINE NEGATIVE (NEGATIVE); GLUCOSE, URINE (UA) NEGATIVE (NEGATIVE); KETONES,URINE NEGATIVE (NEGATIVE); LEUKOCYTE ESTERASE ,URINE NEGATIVE (NEGATIVE); NITRITE,URINE NEGATIVE (NEGATIVE); PH,URINE 5 (4.5-8.0); PROTEIN,URINE 1+ (NEGATIVE); UROBILINOGEN,URINE 4 MG/DL (0.0-1.0)
[2017-11-11 07:54] VITALS: BP 143/93
[2017-11-11 07:59] LABS: BASOPHILS % (AUTO) 3.6 % (0.0-2.0); EOSINOPHILS % (AUTO) 2.4 % (0.0-3.0); HEMATOCRIT 36.9 % (42.0-52.0); LYMPHOCYTES % (AUTO) 40.3 % (20.0-45.0); MEAN CORPUSCULAR VOLUME 89 FL (80-99); MONOCYTES % (AUTO) 8.4 % (1.0-10.0); NEUTROPHILS % (AUTO) 45.3 % (45.0-75.0); PLATELET COUNT 222 K/UL (150-450); RED BLOOD COUNT 4.16 M/UL (4.70-6.10); WHITE BLOOD COUNT 6.4 K/UL (4.8-10.8)
[2017-11-11 08:03] LABS: COLOR,URINE YELLOW
[2017-11-11 08:47] LABS: ANION GAP 10 mmol/L (5-15); BLOOD UREA NITROGEN 14 mg/dL (7-18); CALCIUM 8.3 MG/DL (8.5-10.1); CARBON DIOXIDE 27 MMOL/L (21-32); CHLORIDE 107 MMOL/L (98-107); CREATININE 0.8 MG/DL (0.55-1.30); POTASSIUM 3.9 MMOL/L (3.5-5.1); SODIUM 144 MMOL/L (136-145)
[2017-11-11 08:51] LABS: ALANINE AMINOTRANSFERASE 133 U/L (12-78); ALBUMIN 3.2 G/DL (3.4-5.0); ALBUMIN/GLOBULIN RATIO 0.8 (1.0-2.7); ALKALINE PHOSPHATASE 127 U/L (46-116); ASPARTATE AMINO TRANSFERASE 175 U/L (15-37); BILIRUBIN,TOTAL 0.6 MG/DL (0.2-1.0)
--- NOTE | 2017-11-11 10:19 | Diagnostic Imaging Report ---
EXAM: MR Lumbar Spine With Intravenous Contrast CLINICAL HISTORY: WEAK TECHNIQUE: Magnetic resonance images of the lumbar spine with intravenous contrast in multiple planes. COMPARISON: No relevant prior studies available. FINDINGS: Vertebrae: Anterior superior endplate Schmorl's nodule of L1 with mild about 20% old compression deformity. Sclerotic degenerative changes of the anterior endplates of L5-S1. No malalignment. No acute fracture. Interspaces: T11-12 and T12-L1 as well as L5-S1 disc desiccation. Spinal cord: Unremarkable. Normal signal. No abnormal enhancement. Soft tissues: Unremarkable. DISCS/SPINAL CANAL/NEURAL FORAMINA: T11-T12: T11-12 anterior disc herniation. Mild posterior disc protrusion with severe right neural foraminal narrowing. T12-L1: T12-L1 mild bulge. No significant stenosis. L1-L2: Unremarkable. No significant disc disease. No stenosis. L2-L3: Unremarkable. No significant disc disease. No stenosis. L3-L4: L3-4 mild broad-based disc bulge. No stenosis. L4-L5: L4-5 mild broad-based disc bulge. Ligamentum flavum thickening. No significant central canal narrowing. Mild right neuroforaminal narrowing. L5-S1: L5-S1 broad-based disc bulge with moderate central canal stenosis. High intensity zone posterior disc may be annular tear. Ligamentum flavum thickening and facet arthropathy. Moderate right neural foraminal narrowing. Moderate to severe left neural foraminal narrowing. IMPRESSION: 1. T11-12 anterior disc herniation. Mild posterior disc protrusion with severe right neural foraminal narrowing. 2. L5-S1 broad-based disc bulge with moderate central canal stenosis. High intensity zone posterior disc may be annular tear. Ligamentum flavum thickening and facet arthropathy. Moderate right neural foraminal narrowing. Moderate to severe left neural foraminal narrowing. 3. Anterior superior endplate Schmorl's nodule of L1 with mild about 20% old compression deformity.
[2017-11-11 10:35] VITALS: BP 143/93
== END 2017-11-11 10:38 | disposition home or self-care (01) ==
LOC: EDBD 22:00 → EDUNIT# 22:00 → EMR 22:23
DX: R53.1 Weakness (principal); I10 Essential (primary) hypertension
CPT/HCPCS: 36415; 72148; 80053; 80307; 80329; 81003; 85025; 99284

== ENCOUNTER 2017-12-14 20:20 | Emergency (ER) | payer MEDICAID, OTHER ==
[~2017-12-14] VITALS: Ht 177.8 cm; Wt 90.7 kg
[2017-12-14 20:30] VITALS: BP 132/78
[2017-12-14] MEDS ORDERED: IBUPROFEN600 MG ORAL (20:55)
--- NOTE | 2017-12-14 20:55 | Emergency Room Report ---
History of Present Illness General Chief Complaint: Alcohol Intoxication Source: Patient, Medical Record, EMS Present Illness HPI Is a 52-year-old male who is wheelchair-bound. He has a history of chronic pain syndrome and also alcohol abuse. He's been here numerous time. He presents with chief complaint of jaw has body pain and can't move. Onset for last couple days. Admit to drinking tonight. Denies any drug use. Pain is 10 out of 10. Out of his pain medication. Worse with movement. No nausea no vomiting for no fever chills but no diarrhea. Denies any other complaint. Allergies: Coded Allergies: No Known Allergies (Unverified , 11/10/17) Patient History Past Medical History: see triage record, old chart reviewed Past Surgical History: other Pertinent Family History: none Social History: Denies: smoking Immunizations: other Reviewed Nursing Documentation: PMH: Agreed; PSxH: Agreed Nursing Documentation-PMH Hx Cardiac Problems: Yes Hx Hypertension: Yes Hx Cancer: No Hx Gastrointestinal Problems: Yes - gi bleeding Hx Neurological Problems: No Review of Systems Eye: Denies: eye pain, blurred vision ENT: Denies: ear pain, nose congestion, throat swelling Respiratory: Denies: cough, shortness of breath Cardiovascular: Denies: chest pain, palpitations Gastrointestinal: Denies: abdominal pain, diarrhea, nausea, vomiting Musculoskeletal: Reports: back pain, joint pain, muscle pain Skin: Denies: rash Neurological: Denies: headache, numbness Endocrine: Denies: increased thirst, increased urine Hematologic/Lymphatic: Denies: easy bruising All Other Systems: negative except mentioned in HPI Physical Exam Vital Signs Date Time Temp Pulse Resp B/P (MAP) Pulse Ox O2 Delivery O2 Flow Rate FiO2 12/14/17 20:16 97.0 86 18 132/78 98 Room Air 97.0 vitals tiffanie Sp02 EP Interpretation: reviewed, normal General Appearance: well appearing, no apparent distress, alert Head: normocephalic, atraumatic Eyes: bilateral eye PERRL, bilateral eye EOMI ENT: hearing grossly normal, normal pharynx Neck: full range of motion, supple, no meningismus Respiratory: chest non-tender, lungs clear, normal breath sounds Cardiovascular #1: regular rate, rhythm, no murmur Gastrointestinal: normal bowel sounds, non tender, no mass, no organomegaly, no bruit, non-distended Musculoskeletal: back normal Neurologic: alert, oriented x3, other - Patient said that he can't move yet he is moving upper extremity without any problem. He is able to transfer himself from the wheelchair onto the bed without any difficulty. Psychiatric: mood/affect normal Skin: warm/dry Medical Decision Making Diagnostic Impression: Primary Impression: Chronic pain Qualified Codes: G89.4 - Chronic pain syndrome Additional Impression: Acute alcoholic intoxication Qualified Codes: F10.929 - Alcohol use, unspecified with intoxication, unspecified ER Course Patient with jaw has body pain. I suspect this is from chronic pain and also worsened by alcohol intoxication. He is otherwise stable. No focal deficit. Vital stable. I see no need for blood work. We'll observe until more clinically sober. Last Vital Signs Date Time Temp Pulse Resp B/P (MAP) Pulse Ox O2 Delivery O2 Flow Rate FiO2 12/14/17 20:16 97.0 86 18 132/78 98 Room Air 97.0 Status: improved Disposition: HOME, SELF-CARE Condition: Stable Scripts Ibuprofen* (MOTRIN*) 600 Mg Tablet 600 MG ORAL THREE TIMES A DAY, #30 TAB 0 Refills Prov: DRU GREGORIO M.D. 12/14/17 Patient Instructions: Alcohol Intoxication, [id number] Additional Instructions: Follow-up with your doctor in 7 days. Abstain from alcohol and drugs. Return if worse. DRU GREGORIO M.D. Dec 14, 2017 20:55
[2017-12-14 22:11] VITALS: BP 132/78
[2017-12-15 01:59] VITALS: BP 132/78
== END 2017-12-14 22:11 | disposition home or self-care (01) ==
LOC: EDBD 20:20 → EMR 20:42
DX: G89.4 Chronic pain syndrome (principal); M79.1 Myalgia; M54.89 Other dorsalgia; M25.50 Pain in unspecified joint; F10.229 Alcohol dependence with intoxication, unspecified; Z99.3 Dependence on wheelchair
CPT/HCPCS: 99284

== ENCOUNTER 2017-12-20 14:54 | Emergency (ER) | payer OTHER ==
[~2017-12-20] VITALS: Ht 182.9 cm; Wt 95.3 kg
[~2017-12-20 14:54] MED LIST changes: +IBUPROFEN600 MG ORAL
[2017-12-20 16:11] VITALS: BP 140/80
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
[2017-12-21 01:05] VITALS: BP 138/81
== END 2017-12-21 01:05 | disposition home or self-care (01) ==
LOC: EDBD 14:54 → EMR 19:01
DX: R53.1 Weakness (principal); G89.4 Chronic pain syndrome; F10.129 Alcohol abuse with intoxication, unspecified; I10 Essential (primary) hypertension; Z59.0 Homelessness
CPT/HCPCS: 99283

== ENCOUNTER 2018-01-20 10:58 | Emergency (ER) | payer OTHER ==
[~2018-01-20] VITALS: Ht 193 cm; Wt 88.5 kg
[2018-01-20 11:03] VITALS: BP 148/90
[2018-01-20 12:20] LABS: BASOPHILS % (AUTO) 2.3 % (0.0-2.0); EOSINOPHILS % (AUTO) 1.1 % (0.0-3.0); HEMATOCRIT 38.8 % (42.0-52.0); HEMOGLOBIN 12.4 G/DL (14.2-18.0); LYMPHOCYTES % (AUTO) 23.8 % (20.0-45.0); MEAN CORPUSCULAR VOLUME 79 FL (80-99); MONOCYTES % (AUTO) 9.1 % (1.0-10.0); NEUTROPHILS % (AUTO) 63.7 % (45.0-75.0); PLATELET COUNT 186 K/UL (150-450); RED BLOOD COUNT 4.89 M/UL (4.70-6.10); RED CELL DISTRIBUTION WIDTH 16.6 % (11.6-14.8); WHITE BLOOD COUNT 7.1 K/UL (4.8-10.8)
[2018-01-20 12:29] LABS: ANION GAP 9 mmol/L (5-15); BLOOD UREA NITROGEN 19 mg/dL (7-18); CALCIUM 9.1 MG/DL (8.5-10.1); CARBON DIOXIDE 28 MMOL/L (21-32); CHLORIDE 104 MMOL/L (98-107); CREATININE 0.9 MG/DL (0.55-1.30); POTASSIUM 4.3 MMOL/L (3.5-5.1); SODIUM 141 MMOL/L (136-145)
[2018-01-20 12:33] LABS: ALANINE AMINOTRANSFERASE 96 U/L (12-78); ALBUMIN 3.2 G/DL (3.4-5.0); ALBUMIN/GLOBULIN RATIO 0.8 (1.0-2.7); ALKALINE PHOSPHATASE 116 U/L (46-116); ASPARTATE AMINO TRANSFERASE 165 U/L (15-37)
[2018-01-20] MEDS ORDERED: NKM (12:48)
--- NOTE | 2018-01-20 13:49 | Diagnostic Imaging Report ---
EXAM: CT Head Without Intravenous Contrast CLINICAL HISTORY: WEAK TECHNIQUE: Axial computed tomography images of the head/brain without intravenous contrast. CTDI is 70.53 mGy and DLP is 1529 mGy-cm. One or more of the following dose reduction techniques were used: automated exposure control, adjustment of the mA and/or kV according to patient size, use of iterative reconstruction technique. COMPARISON: CT head dated 11/04/17 FINDINGS: Brain: Mild generalized parenchymal volume loss, likely age-related. Minimal periventricular white matter hypodensities. No evidence of acute intracranial hemorrhage. No mass effect or midline shift. Ventricles: Unremarkable. No ventriculomegaly. Bones/joints: Chronic-appearing dehiscence of the lamina papyracea/medial orbital causey bilaterally. No acute fracture. Soft tissues: Unremarkable. Sinuses: Unremarkable as visualized. No acute sinusitis. Mastoid air cells: Unremarkable as visualized. No mastoid effusion. IMPRESSION: 1. No acute intracranial findings. 2. Minimal periventricular white matter hypodensities likely related to chronic small vessel disease changes. 3. Mild generalized cerebral parenchymal volume loss, likely age- related.
[2018-01-20 15:00] VITALS: BP 124/63
--- NOTE | 2018-01-20 15:01 | Emergency Room Report ---
History of Present Illness General Chief Complaint: General Complaint Source: Patient, EMS (Mario Kan MD) Present Illness HPI 52-year-old male brought to ED for evaluation. Brought in by EMS. Patient is wheelchair-bound. Call 911 stating he feels weak. Unable to move his arms and legs. Patient was discharged from the ER this morning. Patient is well-known to [facility]. History of alcohol abuse. Denies any slurred speech or facial droop. Denies chest pain or shortness of breath. No other aggravating relieving factors. Denies any other associated symptoms (Mario Kan MD) Allergies: Coded Allergies: No Known Allergies (Unverified , 11/10/17) Patient History Past Medical History: HTN Past Surgical History: none Pertinent Family History: none Social History: Denies: smoking, alcohol use, drug use Immunizations: UTD Reviewed Nursing Documentation: PMH: Agreed; PSxH: Agreed (Mario Kan MD) Past Medical History: old chart reviewed (Mir Lanza M.D.) Nursing Documentation-PMH Past Medical History: No History, Except For Hx Hypertension: Yes Hx Cancer: No Hx Gastrointestinal Problems: Yes - gi bleeding Hx Neurological Problems: Yes (Mario Kan MD) Review of Systems All Other Systems: negative except mentioned in HPI (Mario Kan MD) Physical Exam Vital Signs Date Time Temp Pulse Resp B/P (MAP) Pulse Ox O2 Delivery O2 Flow Rate FiO2 01/20/18 10:40 98.8 98 18 148/90 99 Room Air 98.8 Sp02 EP Interpretation: reviewed, normal General Appearance: no apparent distress, alert, GCS 15, non-toxic Head: normocephalic Eyes: bilateral eye normal inspection, bilateral eye PERRL ENT: normal ENT inspection Neck: normal inspection Respiratory: chest non-tender, lungs clear, normal breath sounds, speaking full sentences Cardiovascular #1: regular rate, rhythm, no edema Gastrointestinal: normal bowel sounds, non tender, soft, non-distended, no guarding, no rebound Rectal: deferred Genitourinary: no CVA tenderness Musculoskeletal: back normal, normal range of motion, non-tender Neurologic: alert, oriented x3, responsive, filer repairer III-XII nml as tested, motor strength/tone normal, sensory intact, speech normal Psychiatric: normal inspection Skin: normal inspection Lymphatic: normal inspection (Mario Kan MD) Medical Decision Making Diagnostic Impression: Primary Impression: Episode of generalized weakness Additional Impressions: Alcohol abuse Spinal stenosis Labs Test 01/20/18 11:55 01/20/18 12:50 White Blood Count 7.1 K/UL (4.8-10.8) Red Blood Count 4.89 M/UL (4.70-6.10) Hemoglobin 12.4 G/DL (14.2-18.0) Hematocrit 38.8 % (42.0-52.0) Mean Corpuscular Volume 79 FL (80-99) Mean Corpuscular Hemoglobin 25.4 PG (27.0-31.0) Mean Corpuscular Hemoglobin Concent 32.0 G/DL (32.0-36.0) Red Cell Distribution Width 16.6 % (11.6-14.8) Platelet Count 186 K/UL (150-450) Mean Platelet Volume 8.2 FL (6.5-10.1) Neutrophils (%) (Auto) 63.7 % (45.0-75.0) Lymphocytes (%) (Auto) 23.8 % (20.0-45.0) Monocytes (%) (Auto) 9.1 % (1.0-10.0) Eosinophils (%) (Auto) 1.1 % (0.0-3.0) Basophils (%) (Auto) 2.3 % (0.0-2.0) Sodium Level 141 MMOL/L (136-145) Potassium Level 4.3 MMOL/L (3.5-5.1) Chloride Level 104 MMOL/L (98-107) Carbon Dioxide Level 28 MMOL/L (21-32) Anion Gap 9 mmol/L (5-15) Blood Urea Nitrogen 19 mg/dL (7-18) Creatinine 0.9 MG/DL (0.55-1.30) Estimat Glomerular Filtration Rate > 60 mL/min (>60) Glucose Level 90 MG/DL (74-106) Calcium Level 9.1 MG/DL (8.5-10.1) Total Bilirubin 1.0 MG/DL (0.2-1.0) Aspartate Amino Transf (AST/SGOT) 165 U/L (15-37) Alanine Aminotransferase (ALT/SGPT) 96 U/L (12-78) Alkaline Phosphatase 116 U/L (46-116) Total Protein 7.4 G/DL (6.4-8.2) Albumin 3.2 G/DL (3.4-5.0) Globulin 4.2 g/dL Albumin/Globulin Ratio 0.8 (1.0-2.7) Salicylates Level 1.6 ug/mL (2.8-20) Acetaminophen Level < 2 MCG/ML (10-30) Serum Alcohol 46 mg/dL Urine Opiates Screen Negative (NEGATIVE) Urine Barbiturates Screen Negative (NEGATIVE) Phencyclidine (PCP) Screen Negative (NEGATIVE) Urine Amphetamines Screen Negative (NEGATIVE) Urine Benzodiazepines Screen Negative (NEGATIVE) Urine Cocaine Screen Negative (NEGATIVE) Urine Marijuana (THC) Screen Positive (NEGATIVE) (Mario Kan MD) ER Course Please see above note by Dr. Kan. Patient complaining of back pain, leg and arm weakness. Was discharged with wheelchair. Returned via EMS. CT done here with volume loss. Discussed with Dr. Castano who accepts the patient. Lumbar MRI October 2017: IMPRESSION: 1. T11-12 anterior disc herniation. Mild posterior disc protrusion with severe right neural foraminal narrowing. 2. L5-S1 broad-based disc bulge with moderate central canal stenosis. High intensity zone posterior disc may be annular tear. Ligamentum flavum thickening and facet arthropathy. Moderate right neural foraminal narrowing. Moderate to severe left neural foraminal narrowing. 3. Anterior superior endplate Schmorl's nodule of L1 with mild about 20% old compression deformity. (Mir Lanza M.D.) CT/MRI/US Diagnostic Results CT/MRI/US Diagnostic Results : Imaging Test Ordered: CT Head Impression no acute process (Mario Kan MD) Last Vital Signs Date Time Temp Pulse Resp B/P (MAP) Pulse Ox O2 Delivery O2 Flow Rate FiO2 01/20/18 11:03 98.8 80 18 148/90 99 Room Air 98.8 (Mario Kan MD) Status: improved (Mir Lanza M.D.) Disposition: XFER SHT-TRM HOSP Condition: Serious Referrals: VY OZUNA,REFERRING (PCP) Mario Kan MD Jan 20, 2018 15:01 Mir Lanza M.D. Jan 20, 2018 15:31
[2018-01-20] MEDS ORDERED: Norco 5mg/325mg tab ORAL ONE (15:30)
[2018-01-20 18:00] VITALS: BP 124/63
== END 2018-01-20 18:04 | disposition short-term general hospital (02) ==
LOC: EDBD 10:58 → EMR 12:25
DX: R53.1 Weakness (principal); F10.10 Alcohol abuse, uncomplicated; M48.00 Spinal stenosis, site unspecified; I10 Essential (primary) hypertension
CPT/HCPCS: 36415; 70450; 80053; 80307; 80329; 85025; 87081; 96360; 96361; 99285

== ENCOUNTER 2018-05-26 21:04 | Emergency (ER) | payer MEDICAID, OTHER ==
[~2018-05-26] VITALS: Ht 182.9 cm; Wt 86.2 kg
[2018-05-26 21:07] VITALS: BP 125/76
--- NOTE | 2018-05-26 21:07 | NUR ---
ED Nurse Note: Pt was brought in ED by Ambulance from [facility]. C/o passible ETOH. Pt is A/o x4. Vital signs stable at this time. Waiting for orders.
--- NOTE | 2018-05-26 21:25 | NUR ---
ED Nurse Note: Provided 2 cups of orange juice and one sandwich. Assisted Pt to void.
--- NOTE | 2018-05-26 22:19 | Emergency Room Report ---
History of Present Illness General Chief Complaint: General Complaint Source: Patient, Medical Record Present Illness HPI This is a 52-year-old male but in by EMS for alcohol intoxication. Bystander called 911. Patient complaining of generalized pain. Admits to drinking alcohol tonight. He was brought in without his wheelchair. No trauma. Denies any other complaint. Pain is 10 out of 10. Allergies: Coded Allergies: No Known Allergies (Unverified , 11/10/17) Patient History Past Medical History: see triage record, old chart reviewed Past Surgical History: other Pertinent Family History: none Social History: Reports: alcohol use; Denies: smoking Immunizations: other Reviewed Nursing Documentation: PMH: Agreed; PSxH: Agreed Nursing Documentation-PMH Past Medical History: No History, Except For Hx Hypertension: Yes Hx Cancer: No Hx Gastrointestinal Problems: Yes - gi bleeding Hx Neurological Problems: Yes Review of Systems Eye: Denies: eye pain, blurred vision ENT: Denies: ear pain, nose congestion, throat swelling Respiratory: Denies: cough, shortness of breath Cardiovascular: Denies: chest pain, palpitations Gastrointestinal: Denies: abdominal pain, diarrhea, nausea, vomiting Musculoskeletal: Denies: back pain, joint pain Skin: Denies: rash Neurological: Denies: headache, numbness Endocrine: Denies: increased thirst, increased urine Hematologic/Lymphatic: Denies: easy bruising All Other Systems: negative except mentioned in HPI Physical Exam Vital Signs Date Time Temp Pulse Resp B/P (MAP) Pulse Ox O2 Delivery O2 Flow Rate FiO2 05/26/18 21:00 98.8 90 16 123/79 97 Room Air vitals normal Sp02 EP Interpretation: reviewed, normal General Appearance: well appearing, no apparent distress, alert, other - Intoxicated Head: normocephalic, atraumatic Eyes: bilateral eye PERRL, bilateral eye EOMI ENT: hearing grossly normal, normal pharynx Neck: full range of motion, supple, no meningismus Respiratory: chest non-tender, lungs clear, normal breath sounds Cardiovascular #1: regular rate, rhythm, no murmur Gastrointestinal: normal bowel sounds, non tender, no mass, no organomegaly, no bruit, non-distended Musculoskeletal: back normal, normal range of motion Neurologic: grossly normal Psychiatric: mood/affect normal Skin: warm/dry Medical Decision Making Homeless Attestation I, The treating physician, Dr Amadeo Gregg, has assessed and agrees that patient is medically stable for discharge to an outpatient disposition. Diagnostic Impression: Primary Impression: Alcohol intoxication Qualified Codes: F10.920 - Alcohol use, unspecified with intoxication, uncomplicated ER Course Patient with alcohol intoxication. Not suicidal or homicidal. We'll observe until clinical sobriety. Patient is homeless but does not want to go to [facility] Last Vital Signs Date Time Temp Pulse Resp B/P (MAP) Pulse Ox O2 Delivery O2 Flow Rate FiO2 05/26/18 21:00 98.8 90 16 123/79 97 Room Air Status: improved Disposition: HOME, SELF-CARE Condition: Stable Additional Instructions: Abstain from alcohol. Follow-up with your doctor in 7 days. Return if worse. Amadeo Gregg MD May 26, 2018 22:19
[2018-05-27 06:10] VITALS: BP 126/74
--- NOTE | 2018-05-27 06:10 | NUR ---
Homeless Discharge: Patient is being discharged from medical care. Awake, alert and oriented x4. After care instructions, including referral to community resources were given. Patient verbalized understanding of After care instructions; at this time patient does not request medications, equipment or placement. Patient signed patient consent in the medical record for patient destination upon discharge. All medical devices such as ID band was removed. Patient d/c'd with his personal wheelchair.
== END 2018-05-27 06:10 | disposition home or self-care (01) ==
LOC: EDBD 21:04 → EMR 21:47
DX: F10.120 Alcohol abuse with intoxication, uncomplicated (principal); I10 Essential (primary) hypertension
CPT/HCPCS: 99283

== ENCOUNTER 2018-07-28 20:22 | Inpatient (IN) | payer MEDICAID ==
[~2018-07-28] VITALS: Ht 182.9 cm; Wt 77.1 kg
--- NOTE | 2018-07-28 20:38 | Emergency Room Report ---
History of Present Illness General Chief Complaint: Substance Abuse Source: Patient (Kaden Card MD) Present Illness HPI Patient is a 61-year-old male brought in by EMS after increased altered mental status. Patient had prior history of alcohol abuse and was noted to have been brought in after bystanders called 911. Patient had prior history of alcohol abuse. History is markedly limited by patient's mental status. (Kaden Card MD) Allergies: Coded Allergies: UNABLE TO ASSESS (Unverified , 07/28/18) Patient History Reviewed Nursing Documentation: PMH: Agreed; PSxH: Agreed (Kaden Card MD) Nursing Documentation-PMH Past Medical History Deferred: Patient Unconscious Past Medical History: No Stated History (Kaden Card MD) Review of Systems All Other Systems: limited - by mental status (Kaden Card MD) Physical Exam Vital Signs Date Time Temp Pulse Resp B/P (MAP) Pulse Ox O2 Delivery O2 Flow Rate FiO2 07/28/18 20:19 90 14 121/83 99 Room Air Sp02 EP Interpretation: reviewed, normal General Appearance: normal inspection, well appearing, no apparent distress, alert, GCS 15 Head: atraumatic ENT: normal ENT inspection, hearing grossly normal, normal voice Neck: normal inspection, full range of motion, supple, no bony tend Respiratory: normal inspection, lungs clear, normal breath sounds, no respiratory distress, no retraction, no wheezing Cardiovascular #1: regular rate, rhythm, no edema Gastrointestinal: normal inspection, normal bowel sounds, non tender, soft, no guarding, no hernia Genitourinary: no CVA tenderness Musculoskeletal: normal inspection, back normal, decreased range of motion Neurologic: normal inspection, alert, speech normal, motor weakness - bilateral lower extremity weakness. Psychiatric: normal inspection, judgement/insight normal, mood/affect normal Skin: normal inspection, normal color, no rash (Kaden Card MD) Medical Decision Making Diagnostic Impression: Primary Impression: Substance abuse Additional Impressions: Alcohol abuse Elevated liver enzymes ER Course Patient presented for altered mental status. Differential diagnosis included but was not limited to ischemic stroke, subarachnoid hemorrhage, hypoglycemia, spinal cord injury, neurodegenerative disorder, urinary tract infection, hypoxemia. Patient appears to be intoxicated with alcohol and was noted to have some motor weakness. Patient was endorsed to Dr. Gregg pending reevaluation when more sober. (Kaden Card MD) ER Course Patient presents with alcohol intoxication. The signout to me. He has some presentation several times in the past. He is awake now. Complaining of pain. This is a chronic issue. Main issue here is that manager philosophy did not bring his walking chair/which are with him. Patient is nonambulatory otherwise. We'll have to figure way to get him back to his place since he is homeless and does not want to go to a [facility]. (Amadeo Gregg MD) ER Course Patient not able to ambulate. Unable to get wheelchair. Labs ordered as plant to transfer. See labs below. Still with alcohol on board. Discussed with Dr. Davis and accepted [facility] not [facility] beds. Admit here med. Dr. Lopez. Will need transition social worker consult. May need treatment for alcohol withdrawal. Laboratory Tests Test 07/29/18 09:50 White Blood Count 7.6 K/UL (4.8-10.8) Red Blood Count 5.28 M/UL (4.70-6.10) Hemoglobin 14.2 G/DL (14.2-18.0) Hematocrit 44.5 % (42.0-52.0) Mean Corpuscular Volume 84 FL (80-99) Mean Corpuscular Hemoglobin 26.9 PG (27.0-31.0) L Mean Corpuscular Hemoglobin Concent 31.9 G/DL (32.0-36.0) L Red Cell Distribution Width 18.2 % (11.6-14.8) H Platelet Count 185 K/UL (150-450) Mean Platelet Volume 7.7 FL (6.5-10.1) Neutrophils (%) (Auto) 57.7 % (45.0-75.0) Lymphocytes (%) (Auto) 27.2 % (20.0-45.0) Monocytes (%) (Auto) 11.8 % (1.0-10.0) H Eosinophils (%) (Auto) 1.5 % (0.0-3.0) Basophils (%) (Auto) 1.8 % (0.0-2.0) Sodium Level 142 MMOL/L (136-145) Potassium Level 3.8 MMOL/L (3.5-5.1) Chloride Level 106 MMOL/L (98-107) Carbon Dioxide Level 27 MMOL/L (21-32) Anion Gap 9 mmol/L (5-15) Blood Urea Nitrogen 14 mg/dL (7-18) Creatinine 0.9 MG/DL (0.55-1.30) Estimate Glomerular Filtration Rate > 60 mL/min (>60) Glucose Level 101 MG/DL (74-106) Calcium Level 8.2 MG/DL (8.5-10.1) L Total Bilirubin 0.6 MG/DL (0.2-1.0) Aspartate Amino Transferase (AST) 188 U/L (15-37) H Alanine Aminotransferase (ALT) 120 U/L (12-78) H Alkaline Phosphatase 179 U/L (46-116) H Total Protein 7.4 G/DL (6.4-8.2) Albumin 3.1 G/DL (3.4-5.0) L Globulin 4.3 g/dL Albumin/Globulin Ratio 0.7 (1.0-2.7) L Salicylates Level 2.7 ug/mL (2.8-20) L Urine Opiates Screen Negative (NEGATIVE) Acetaminophen Level < 2 MCG/ML (10-30) L Urine Barbiturates Screen Negative (NEGATIVE) Phencyclidine (PCP) Screen Negative (NEGATIVE) Urine Amphetamines Screen Negative (NEGATIVE) Urine Benzodiazepines Screen Negative (NEGATIVE) Urine Cocaine Screen Negative (NEGATIVE) Urine Marijuana (THC) Screen Negative (NEGATIVE) Serum Alcohol 121 mg/dL (Mir Lanza MD) Last Vital Signs Date Time Temp Pulse Resp B/P (MAP) Pulse Ox O2 Delivery O2 Flow Rate FiO2 07/28/18 20:19 90 14 121/83 99 Room Air Status: improved (Kaden Card MD) Last Vital Signs Date Time Temp Pulse Resp B/P (MAP) Pulse Ox O2 Delivery O2 Flow Rate FiO2 07/29/18 18:59 Room Air 07/29/18 18:47 97 140/76 07/29/18 18:02 98.2 18 100 Status: improved (Mir Lanza MD) Disposition: ADMITTED INPATIENT Condition: Serious Scripts Unable to Obtain Active Prescriptions or Reported Meds Additional Instructions: Abstain from drugs and alcohol. Follow-up with your doctor in 7 days. Return if worse. Kaden Card MD Jul 28, 2018 20:38 Amadeo Gregg MD Jul 29, 2018 05:45 Mir Lanza MD Jul 29, 2018 12:15
--- NOTE | 2018-07-28 20:38 | NUR ---
ED Nurse Note: pt was brought in by [facility] due to possible ETOH, pt smells of alcohol and urinated on himself. pt is yelling and cussing at the nurses.
--- NOTE | 2018-07-28 20:39 | NUR ---
ED Nurse Note: PER [facility] THEY GAVE 2MG NARCAN
[2018-07-28 20:40] VITALS: BP 121/83
--- NOTE | 2018-07-28 20:53 | NUR ---
ED Nurse Note: PER PT WHEN AMBULANCE DROPPED HIM OFF TO ER, HE HAD A WALKER WITH HIM. CALLED [facility], NOTIFIED THEM THAT [facility] DID NOT BRING DOWN THE PTS WALKER. AWAITING FOR UPDATE.
[2018-07-28 22:20] VITALS: BP 120/85
--- NOTE | 2018-07-28 22:40 | NUR ---
ED Nurse Note: PT IS REFUSING FOOD AT THE MOMENT PT YELLING AT NURSE, UTILIZSED DISTRACTINO METHODS AND DIMMED LIGHT
[2018-07-29] VITALS (10 sets, daily range): BP systolic 120–163; BP diastolic 76–98
--- NOTE | 2018-07-29 00:20 | NUR ---
ED Nurse Note: NO NEW ORDERS AT THE MOMENT, PT IS ASLEEP VSS, CONTINOUSLY MONITORING
--- NOTE | 2018-07-29 01:30 | NUR ---
ED Nurse Note: FOLLOWED UP CALL FROM [facility]. PER DISPATCH [id number] SAID THEY HAD LEFT THE PT WALKER WITH PT FRIEND AT SITE OF UP FRENCH TUTOR.
--- NOTE | 2018-07-29 04:37 | NUR ---
ED Nurse Note: pt still asleep in bed, vital signs are stable. pt show no signs of distress.
--- NOTE | 2018-07-29 07:06 | NUR ---
HAND-OFF: Report given to JONE HALL.
--- NOTE | 2018-07-29 07:30 | NUR ---
ED Nurse Note: recieved pt on bed,pt is asleep. no complaint at the moment.
--- NOTE | 2018-07-29 09:45 | NUR ---
ED Nurse Note: with newe order from cail[facility], blood drawn and pt able to give urine specimen and was sent to lab. will continue to monitor.
[2018-07-29 10:09] LABS: BASOPHILS % (AUTO) 1.8 % (0.0-2.0); EOSINOPHILS % (AUTO) 1.5 % (0.0-3.0); HEMATOCRIT 44.5 % (42.0-52.0); HEMOGLOBIN 14.2 G/DL (14.2-18.0); LYMPHOCYTES % (AUTO) 27.2 % (20.0-45.0); MEAN CORPUSCULAR VOLUME 84 FL (80-99); MONOCYTES % (AUTO) 11.8 % (1.0-10.0); NEUTROPHILS % (AUTO) 57.7 % (45.0-75.0); PLATELET COUNT 185 K/UL (150-450); RED BLOOD COUNT 5.28 M/UL (4.70-6.10); RED CELL DISTRIBUTION WIDTH 18.2 % (11.6-14.8); WHITE BLOOD COUNT 7.6 K/UL (4.8-10.8)
[2018-07-29 10:24] LABS: ANION GAP 9 mmol/L (5-15); BLOOD UREA NITROGEN 14 mg/dL (7-18); CALCIUM 8.2 MG/DL (8.5-10.1); CARBON DIOXIDE 27 MMOL/L (21-32); CHLORIDE 106 MMOL/L (98-107); CREATININE 0.9 MG/DL (0.55-1.30); POTASSIUM 3.8 MMOL/L (3.5-5.1); SODIUM 142 MMOL/L (136-145)
[2018-07-29 10:29] LABS: ALANINE AMINOTRANSFERASE 120 U/L (12-78); ALBUMIN 3.1 G/DL (3.4-5.0); ALBUMIN/GLOBULIN RATIO 0.7 (1.0-2.7); ALKALINE PHOSPHATASE 179 U/L (46-116); ASPARTATE AMINO TRANSFERASE 188 U/L (15-37); BILIRUBIN,TOTAL 0.6 MG/DL (0.2-1.0)
--- NOTE | 2018-07-29 16:29 | NUR ---
ED Nurse Note: pt is admitted to the hospital report given to vicky wallace
--- NOTE | 2018-07-29 17:30 | NUR ---
ED Nurse Note: pt was transfered to [facility]. pt took all belongings.
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
[2018-07-29] MEDS ORDERED: chlordiazePOXIDE 25mg Cap ORAL PRN (18:30)
--- NOTE | 2018-07-29 19:20 | NUR ---
HAND-OFF: Report given to SARAH BECERRIL.
--- NOTE | 2018-07-29 20:00 | NUR ---
NURSE NOTES: Patient received in bed, watching TV. No complaints at this time. Call light in reach. Bed locked in low position, bed alarm on. Instucted to call for assistance. Will continue to monitor.
[2018-07-29] MEDS: Heparin 5000 units/ml inj SUBQ SCH (21:00)
--- NOTE | 2018-07-29 21:06 | Infectious Diseases Prog Note ---
Assessment/Plan Problems: (1) Elevated liver enzymes Assessment & Plan: rule out viral hepatitis, will send hepatitis panel , avoid hepatotoxic meds (2) Open leg wound Assessment & Plan: continue local wound care and dressings change as per hospital protocol (3) Substance abuse Subjective Allergies: Coded Allergies: UNABLE TO ASSESS (Unverified , 07/28/18) Objective Vital Signs Last 24 Hour Vital Signs Date Time Temp Pulse Resp B/P (MAP) Pulse Ox O2 Delivery O2 Flow Rate FiO2 07/29/18 18:59 Room Air 07/29/18 18:53 Room Air 07/29/18 18:47 97 140/76 07/29/18 18:40 97 140/76 (97) 07/29/18 18:02 98.2 87 18 163/98 (119) 100 07/29/18 18:01 Room Air 07/29/18 17:30 98.2 78 15 120/86 99 Room Air 07/29/18 16:20 98.2 78 15 120/86 99 Room Air 07/29/18 12:30 98.2 87 15 127/85 98 Room Air 07/29/18 08:45 98.2 91 15 121/86 99 Room Air 07/29/18 05:53 98.2 87 15 127/85 98 Room Air 07/29/18 04:36 98.2 91 16 121/86 99 Room Air 07/29/18 02:30 98.1 91 17 123/79 100 Room Air 07/29/18 00:17 98.1 83 16 125/83 100 Room Air 07/28/18 22:20 98.1 88 17 120/85 99 Room Air Height (Feet): 6 Height (Inches): 0.00 Weight (Pounds): 170 Laboratory Tests Test 07/29/18 09:50 White Blood Count 7.6 K/UL (4.8-10.8) Red Blood Count 5.28 M/UL (4.70-6.10) Hemoglobin 14.2 G/DL (14.2-18.0) Hematocrit 44.5 % (42.0-52.0) Mean Corpuscular Volume 84 FL (80-99) Mean Corpuscular Hemoglobin 26.9 PG (27.0-31.0) L Mean Corpuscular Hemoglobin Concent 31.9 G/DL (32.0-36.0) L Red Cell Distribution Width 18.2 % (11.6-14.8) H Platelet Count 185 K/UL (150-450) Mean Platelet Volume 7.7 FL (6.5-10.1) Neutrophils (%) (Auto) 57.7 % (45.0-75.0) Lymphocytes (%) (Auto) 27.2 % (20.0-45.0) Monocytes (%) (Auto) 11.8 % (1.0-10.0) H Eosinophils (%) (Auto) 1.5 % (0.0-3.0) Basophils (%) (Auto) 1.8 % (0.0-2.0) Sodium Level 142 MMOL/L (136-145) Potassium Level 3.8 MMOL/L (3.5-5.1) Chloride Level 106 MMOL/L (98-107) Carbon Dioxide Level 27 MMOL/L (21-32) Anion Gap 9 mmol/L (5-15) Blood Urea Nitrogen 14 mg/dL (7-18) Creatinine 0.9 MG/DL (0.55-1.30) Estimat Glomerular Filtration Rate > 60 mL/min (>60) Glucose Level 101 MG/DL (74-106) Calcium Level 8.2 MG/DL (8.5-10.1) L Total Bilirubin 0.6 MG/DL (0.2-1.0) Aspartate Amino Transf (AST/SGOT) 188 U/L (15-37) H Alanine Aminotransferase (ALT/SGPT) 120 U/L (12-78) H Alkaline Phosphatase 179 U/L (46-116) H Total Protein 7.4 G/DL (6.4-8.2) Albumin 3.1 G/DL (3.4-5.0) L Globulin 4.3 g/dL Albumin/Globulin Ratio 0.7 (1.0-2.7) L Salicylates Level 2.7 ug/mL (2.8-20) L Urine Opiates Screen Negative (NEGATIVE) Acetaminophen Level < 2 MCG/ML (10-30) L Urine Barbiturates Screen Negative (NEGATIVE) Phencyclidine (PCP) Screen Negative (NEGATIVE) Urine Amphetamines Screen Negative (NEGATIVE) Urine Benzodiazepines Screen Negative (NEGATIVE) Urine Cocaine Screen Negative (NEGATIVE) Urine Marijuana (THC) Screen Negative (NEGATIVE) Serum Alcohol 121 mg/dL Current Medications Medications (Trade) Dose Ordered Sig/Chiqui Route PRN Reason Start Time Stop Time Status Last Admin Dose Admin Amlodipine Besylate (Norvasc) 5 mg DAILY ORAL 07/29/18 18:00 08/28/18 17:59 07/29/18 18:47 Chlordiazepoxide (Librium) 25 mg Q6H PRN ORAL Agitation 07/29/18 18:30 08/05/18 18:29 Clonidine HCl (Catapres Tab) 0.1 mg Q6H PRN ORAL For High Blood Pressure 07/29/18 18:30 08/28/18 18:29 Folic Acid (Folate) 1 mg DAILY ORAL 07/30/18 09:00 08/29/18 08:59 Heparin Sodium (Porcine) (Heparin 5000 units/ml) 5,000 units EVERY 12 HOURS SUBQ 07/29/18 21:00 08/28/18 20:59 Lorazepam (Ativan) 1 mg Q6H PRN ORAL For Anxiety 07/29/18 18:30 08/05/18 18:29 Multivitamins (Multivitamins) 1 tab DAILY ORAL 07/30/18 09:00 08/29/18 08:59 Augusto Temple M.D. Jul 29, 2018 21:06
[2018-07-30 00:03] VITALS: BP 133/88
[2018-07-30] MEDS: traMADol 50mg tab ORAL PRN (03:53)
[2018-07-30 03:59] VITALS: BP 145/91
--- NOTE | 2018-07-30 07:35 | NUR ---
HAND-OFF: Report given to Alicia BECERRIL.
--- NOTE | 2018-07-30 07:56 | History & Physical ---
History and Physical History & Physicial seen and examined. Dictating completed On 097 Mariah Lopez MD Jul 30, 2018 07:56
--- NOTE | 2018-07-30 07:56 | NUR ---
NURSE NOTES: Patient received resting in bed. Alert and oriented, breathing unlabored on room air. Denies respiratory distress or pain at this time. Urinal by the bedside. Bed locked in lowest position, call light placed within reach. Will continue to monitor.
[2018-07-30 08:00] VITALS: BP 128/80
[2018-07-30 08:04] LABS: BASOPHILS % (AUTO) 1.6 % (0.0-2.0); EOSINOPHILS % (AUTO) 2.8 % (0.0-3.0); HEMATOCRIT 37.4 % (42.0-52.0); LYMPHOCYTES % (AUTO) 28.3 % (20.0-45.0); MEAN CORPUSCULAR VOLUME 85 FL (80-99); MONOCYTES % (AUTO) 14.2 % (1.0-10.0); NEUTROPHILS % (AUTO) 53.1 % (45.0-75.0); PLATELET COUNT 135 K/UL (150-450); RED BLOOD COUNT 4.41 M/UL (4.70-6.10); WHITE BLOOD COUNT 6.3 K/UL (4.8-10.8)
[2018-07-30 08:12] LABS: ALANINE AMINOTRANSFERASE 92 U/L (12-78); ALBUMIN 2.7 G/DL (3.4-5.0); ALKALINE PHOSPHATASE 166 U/L (46-116); ASPARTATE AMINO TRANSFERASE 138 U/L (15-37); BILIRUBIN,DIRECT 0.6 MG/DL (0.0-0.3); BILIRUBIN,TOTAL 1.1 MG/DL (0.2-1.0)
[2018-07-30] MEDS: Heparin 5000 units/ml inj SUBQ SCH ×2 (08:49→21:03)
[2018-07-30 09:23] LABS: ALANINE AMINOTRANSFERASE 92 U/L (12-78); ALBUMIN 2.7 G/DL (3.4-5.0); ALBUMIN/GLOBULIN RATIO 0.7 (1.0-2.7); ALKALINE PHOSPHATASE 167 U/L (46-116); ANION GAP 9 mmol/L (5-15); ASPARTATE AMINO TRANSFERASE 140 U/L (15-37); BILIRUBIN,TOTAL 1.1 MG/DL (0.2-1.0); BLOOD UREA NITROGEN 15 mg/dL (7-18); CALCIUM 8.4 MG/DL (8.5-10.1); CARBON DIOXIDE 28 MMOL/L (21-32); CHLORIDE 104 MMOL/L (98-107); CHOLESTEROL 125 MG/DL (< 200); HDL CHOLESTEROL 35 MG/DL (40-60); POTASSIUM 3.4 MMOL/L (3.5-5.1); SODIUM 141 MMOL/L (136-145); TRIGLYCERIDES 83 MG/DL (30-150)
--- NOTE | 2018-07-30 09:27 | NUR ---
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 ELEVATED LIVER ENZYMES VS: BP 121/83, P 90, T 98.1, RR 14, SpO2 99 RBC 4.41, Hgb 12.0, Hct 37.4, K 3.4, TOTAL BILIRUBIN 1.1, AST 188, ALT 120, ALK. PHOS. 179 IS:MOTRIN 600mg NORVASC 5mg TRAMADOL 50mg ADMITTED TO MED/SURG DEPENDING ON COURSE OF CARE TO DETERMINE PLACEMENT UPON DC
[2018-07-30 12:00] VITALS: BP 121/82
--- NOTE | 2018-07-30 12:30 | NUR ---
Social Service Note GENEVA met with patient to assess for homelessness. Patient is alert, oriented and verbally responsive. Patient with multiple ER visits for intoxication. Patient admits to ETOH dependency. Patient states he drinks almost daily. Patient states he is working with the office through a program that is assisting with housing options. Patient states he will not require placement upon discharge. Patient states he is unable to ambulate and was utilizing a FWW with a seat. Patient states he just received this walker and it was delivered to his mother's house in [place] a few weeks ago by [employer]. Patient states when he was picked up by EMS they left his FWW on the street. Patient states he will require a FWW with a seat or W/C upon discharge. GENEVA confirmed patient's medical clinic [address] [place] [address] . Patient provided his emergency contact Louise Khan (mother) [phone]. Patient not receptive to substance dependency assessment centers for follow up care or treatment referrals. GENEVA discussed [facility] substance abuse hotline. Homeless Patient Discharge check list will be completed and placed in patient's chart. Will continue to monitor and follow up.
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
[2018-07-30 16:00] VITALS: BP 145/91
--- NOTE | 2018-07-30 16:01 | NUR ---
*-* INSURANCE *-* ALL CLINICALS AND REVIEWS FAXED TO: RODERICK FORBES:MARY P:[phone] F:[phone]
--- NOTE | 2018-07-30 16:53 | Infectious Diseases Prog Note ---
Assessment/Plan Problems: (1) Elevated liver enzymes Assessment & Plan: rule out viral hepatitis, pending hepatitis panel , avoid hepatotoxic meds , avoid alcohol (2) Open leg wound Assessment & Plan: continue local wound care and dressings change as per hospital protocol (3) Alcohol abuse Assessment & Plan: with intoxication , recommend counseling and rehabilitation Subjective Constitutional: Reports: no symptoms HEENT: Reports: no symptoms Respiratory: Reports: no symptoms Breasts: Reports: no symptoms Cardiovascular: Reports: no symptoms Gastrointestinal/Abdominal: Reports: no symptoms Genitourinary: Reports: no symptoms Neurologic: Reports: weakness Psychiatric: Reports: no symptoms Skin: Reports: ulcer Endocrine: Reports: no symptoms Hematologic: Reports: no symptoms Musculoskeletal: Reports: no symptoms Allergies: Coded Allergies: ACETAMINOPHEN (Verified Allergy, Mild, 07/30/18) Objective Vital Signs Last 24 Hour Vital Signs Date Time Temp Pulse Resp B/P (MAP) Pulse Ox O2 Delivery O2 Flow Rate FiO2 07/30/18 12:00 98.6 80 18 121/82 (95) 97 07/30/18 09:00 Room Air 07/30/18 08:49 92 145/91 07/30/18 08:00 98.4 86 19 128/80 (96) 99 07/30/18 04:23 98.4 07/30/18 03:59 98.4 92 18 145/91 (109) 96 07/30/18 00:03 98.2 92 18 133/88 (103) 97 07/29/18 21:00 Room Air 07/29/18 20:00 98.2 95 18 157/88 (111) 100 07/29/18 18:59 Room Air 07/29/18 18:53 Room Air 07/29/18 18:47 97 140/76 07/29/18 18:40 97 140/76 (97) 07/29/18 18:02 98.2 87 18 163/98 (119) 100 07/29/18 18:01 Room Air 07/29/18 17:30 98.2 78 15 120/86 99 Room Air Height (Feet): 6 Height (Inches): 0.00 Weight (Pounds): 170 General Appearance: WD/WN, no acute distress HEENT: normocephalic, atraumatic, anicteric, mucous membranes moist, PERRL, EOMI, pharynx normal, supple, no JVD Respiratory/Chest: chest wall non-tender, normal breath sounds, no respiratory distress, no accessory muscle use, decreased breath sounds Cardiovascular: normal peripheral pulses, normal rate, regular rhythm, no gallop/murmur, no JVD Abdomen: normal bowel sounds, soft, non tender, no organomegaly, non distended , no mass, no scars Genitourinary: normal external genitalia Extremities: no cyanosis, no clubbing Skin: no rash, no lesions, no ulcers Neurologic/Psychiatric: liner assembler II-XII grossly normal, no motor/sensory deficits, abnormal gait, alert, responsive Lymphatic: no neck adenopathy, no groin adenopathy Musculoskeletal: normal muscle bulk, no effusion Laboratory Tests Test 07/30/18 07:25 White Blood Count 6.3 K/UL (4.8-10.8) Red Blood Count 4.41 M/UL (4.70-6.10) L Hemoglobin 12.0 G/DL (14.2-18.0) L Hematocrit 37.4 % (42.0-52.0) L Mean Corpuscular Volume 85 FL (80-99) Mean Corpuscular Hemoglobin 27.2 PG (27.0-31.0) Mean Corpuscular Hemoglobin Concent 32.0 G/DL (32.0-36.0) Red Cell Distribution Width 18.0 % (11.6-14.8) H Platelet Count 135 K/UL (150-450) L Mean Platelet Volume 8.1 FL (6.5-10.1) Neutrophils (%) (Auto) 53.1 % (45.0-75.0) Lymphocytes (%) (Auto) 28.3 % (20.0-45.0) Monocytes (%) (Auto) 14.2 % (1.0-10.0) H Eosinophils (%) (Auto) 2.8 % (0.0-3.0) Basophils (%) (Auto) 1.6 % (0.0-2.0) Sodium Level 141 MMOL/L (136-145) Potassium Level 3.4 MMOL/L (3.5-5.1) L Chloride Level 104 MMOL/L (98-107) Carbon Dioxide Level 28 MMOL/L (21-32) Anion Gap 9 mmol/L (5-15) Blood Urea Nitrogen 15 mg/dL (7-18) Creatinine 1.0 MG/DL (0.55-1.30) Estimat Glomerular Filtration Rate > 60 mL/min (>60) Glucose Level 115 MG/DL (74-106) H Hemoglobin A1c 5.3 % (4.3-6.0) Calcium Level 8.4 MG/DL (8.5-10.1) L Total Bilirubin 1.1 MG/DL (0.2-1.0) H Direct Bilirubin 0.6 MG/DL (0.0-0.3) H Aspartate Amino Transf (AST/SGOT) 138 U/L (15-37) H Alanine Aminotransferase (ALT/SGPT) 92 U/L (12-78) H Alkaline Phosphatase 166 U/L (46-116) H Total Protein 6.4 G/DL (6.4-8.2) Albumin 2.7 G/DL (3.4-5.0) L Globulin 3.7 g/dL Albumin/Globulin Ratio 0.7 (1.0-2.7) L Triglycerides Level 83 MG/DL (30-150) Cholesterol Level 125 MG/DL (< 200) LDL Cholesterol 81 mg/dL (<100) HDL Cholesterol 35 MG/DL (40-60) L Cholesterol/HDL Ratio 3.6 (3.3-4.4) Hepatitis A IgM Antibody Pending Hepatitis B Surface Antigen Pending Hepatitis B Core IgM Antibody Pending Hepatitis C Antibody Pending Current Medications Medications (Trade) Dose Ordered Sig/Chiqui Route PRN Reason Start Time Stop Time Status Last Admin Dose Admin Amlodipine Besylate (Norvasc) 5 mg DAILY ORAL 07/29/18 18:00 08/28/18 17:59 07/30/18 08:49 Chlordiazepoxide (Librium) 25 mg Q6H PRN ORAL Agitation 07/29/18 18:30 08/05/18 18:29 Clonidine HCl (Catapres Tab) 0.1 mg Q6H PRN ORAL For High Blood Pressure 07/29/18 18:30 08/28/18 18:29 Folic Acid (Folate) 1 mg DAILY ORAL 07/30/18 09:00 08/29/18 08:59 07/30/18 08:49 Heparin Sodium (Porcine) (Heparin 5000 units/ml) 5,000 units EVERY 12 HOURS SUBQ 07/29/18 21:00 08/28/18 20:59 Lorazepam (Ativan) 1 mg Q6H PRN ORAL For Anxiety 07/29/18 18:30 08/05/18 18:29 Multivitamins (Multivitamins) 1 tab DAILY ORAL 07/30/18 09:00 08/29/18 08:59 07/30/18 08:49 Tramadol HCl (Ultram) 50 mg Q6H PRN ORAL For Pain 07/29/18 21:45 08/05/18 21:44 07/30/18 03:53 Augusto Temple M.D. Jul 30, 2018 16:53
--- NOTE | 2018-07-30 19:28 | NUR ---
NURSE NOTES: Received patient in bed, awake, alert, oriented x4, no acute distress noted, VSS, afebrile, call light is within reach, bed is in low position, locked and alarm is on. Will continue to monitor for safety and comfort.
--- NOTE | 2018-07-30 19:40 | NUR ---
HAND-OFF: Report given to Suki BECERRIL.
[2018-07-30 20:00] VITALS: BP 147/81
[2018-07-31] VITALS: BP 140/78
[2018-07-31 04:28] VITALS: BP 144/80
[2018-07-31] MEDS: traMADol 50mg tab ORAL PRN ×2 (06:40→13:17)
--- NOTE | 2018-07-31 06:53 | NUR ---
HAND-OFF: Report given to Josh BECERRIL.
[2018-07-31 07:41] LABS: BASOPHILS % (AUTO) 2.4 % (0.0-2.0); EOSINOPHILS % (AUTO) 3.4 % (0.0-3.0); HEMOGLOBIN 13.1 G/DL (14.2-18.0); LYMPHOCYTES % (AUTO) 40.5 % (20.0-45.0); MEAN CORPUSCULAR VOLUME 85 FL (80-99); NEUTROPHILS % (AUTO) 43.7 % (45.0-75.0); PLATELET COUNT 115 K/UL (150-450); RED CELL DISTRIBUTION WIDTH 18.2 % (11.6-14.8); WHITE BLOOD COUNT 6.2 K/UL (4.8-10.8)
[2018-07-31 08:00] VITALS: BP 137/89
[2018-07-31 08:02] LABS: ALANINE AMINOTRANSFERASE 92 U/L (12-78); ALBUMIN 2.9 G/DL (3.4-5.0); ALBUMIN/GLOBULIN RATIO 0.7 (1.0-2.7); ALKALINE PHOSPHATASE 164 U/L (46-116); ANION GAP 11 mmol/L (5-15); ASPARTATE AMINO TRANSFERASE 149 U/L (15-37); BLOOD UREA NITROGEN 13 mg/dL (7-18); CARBON DIOXIDE 26 MMOL/L (21-32); CHLORIDE 104 MMOL/L (98-107); CREATININE 0.8 MG/DL (0.55-1.30); POTASSIUM 4.2 MMOL/L (3.5-5.1); SODIUM 140 MMOL/L (136-145)
[2018-07-31] MEDS: Heparin 5000 units/ml inj SUBQ SCH ×2 (09:00→20:29)
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
--- NOTE | 2018-07-31 11:48 | NUR ---
*-* INSURANCE *-* ALL CLINICALS AND REVIEWS FAXED TO: RODERICK FORBES:MARY P:[phone] F:[phone]
[2018-07-31 12:00] VITALS: BP 137/82
--- NOTE | 2018-07-31 12:51 | NUR ---
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 ELEVATED LIVER ENZYMES VS: BP 144/80, P 80, T 98.2, RR 20, SpO2 97 Hgb 13.1, Hct 41.0 IS:NORVASC 5mg ULTRAM 50mg MED/SURG STATUS
[2018-07-31 16:00] VITALS: BP 109/59
--- NOTE | 2018-07-31 16:15 | NUR ---
P.T Note: P.T evaluation completed and tx initiated. Please refer to P.T evaluation for current functional status.
--- NOTE | 2018-07-31 17:06 | General Progress Note ---
Assessment/Plan Assessment/Plan S: I am doing ok O: Appears comfortable, denies sob or pain PHYSICAL EXAMINATION:HEAD AND NECK: Atraumatic and normocephalic. CHEST: Clear to auscultation.HEART: S1 and S2. Regular rate and rhythm. ABDOMEN: Soft. No organomegaly.MUSCULOSKELETAL: Paraplegia. NEUROLOGY: Awake, alert, and oriented x3. Meds: reviewed and reconciled in the chart ASSESSMENT: 1. Abnormal LFT. 2. Paraplegia. 3. GI and DVT prophylaxis. Plan: medicaly stable Once DME provide, august f/u as o/p Subjective Allergies: Coded Allergies: ACETAMINOPHEN (Verified Allergy, Mild, 07/30/18) Objective Last 24 Hour Vital Signs Date Time Temp Pulse Resp B/P (MAP) Pulse Ox O2 Delivery O2 Flow Rate FiO2 07/31/18 12:00 99.0 77 21 137/82 (100) 99 07/31/18 09:00 Room Air 07/31/18 08:50 80 137/89 07/31/18 08:00 98.2 80 20 137/89 (105) 97 07/31/18 04:28 98.3 81 18 144/80 (101) 07/31/18 00:00 97.9 71 20 140/78 (98) 07/30/18 21:00 Room Air 07/30/18 20:00 98.2 78 17 147/81 (103) Intake and Output 07/30/18 07/31/18 19:00 07:00 Intake Total 360 ml 500 ml Output Total 500 ml Balance -140 ml 500 ml Intake Oral 360 ml Other 500 ml Output Urine Total 500 ml # Voids 3 Laboratory Tests 07/31/18 06:33: White Blood Count 6.2, Red Blood Count 4.80, Hemoglobin 13.1L, Hematocrit 41.0L , Mean Corpuscular Volume 85, Mean Corpuscular Hemoglobin 27.2, Mean Corpuscular Hemoglobin Concent 31.9L, Red Cell Distribution Width 18.2H, Platelet Count 115L, Mean Platelet Volume 8.5, Neutrophils (%) (Auto) 43.7L, Lymphocytes (%) (Auto) 40.5, Monocytes (%) (Auto) 10.0, Eosinophils (%) (Auto) 3.4H, Basophils (%) (Auto) 2.4H, Sodium Level 140, Potassium Level 4.2, Chloride Level 104, Carbon Dioxide Level 26, Anion Gap 11, Blood Urea Nitrogen 13, Creatinine 0.8, Estimat Glomerular Filtration Rate > 60, Glucose Level 91, Calcium Level 9.0, Total Bilirubin 1.0, Aspartate Amino Transf (AST/SGOT) 149H, Alanine Aminotransferase (ALT/SGPT) 92H, Alkaline Phosphatase 164H, Total Protein 6.8, Albumin 2.9L, Globulin 3.9, Albumin/Globulin Ratio 0.7L 07/31/18 14:25: Hepatitis C Antibody [Pending], Hepatitis C RNA (PCR) IUs/ml [Pending], Hepatitis C RNA (PCR) log IUs/ml [Pending] Height (Feet): 6 Height (Inches): 0.00 Weight (Pounds): 170 Mariah Lopez MD Jul 31, 2018 17:06
--- NOTE | 2018-07-31 17:13 | NUR ---
NURSE NOTES: PT REQUESTS FOR HOSPITAL TO PROVIDE FWW WITH SEAT. PER PT'S REQUEST, RN SPOKE TO EXPLOSIVE ORDNANCE DISPOSAL TECHNICIAN FROM [facility], WHO STATES THEY CAN PROVIDE A FWW WITH SEAT WITH MD PRESCRIPTION. FAX PRESCRIPTION TO . RN MADE DR DELUCA AWARE OF PRESCRIPTION AND MD WILL PROVIDE PRESCRIPTION DURING NEXT ROUNDS.
--- NOTE | 2018-07-31 18:02 | Infectious Diseases Prog Note ---
Assessment/Plan Problems: (1) Elevated liver enzymes Assessment & Plan: suspect due to alcohol intixication and viral hepatitis, with HCV. pending viral load. avoid hepatotoxic meds , avoid alcohol (2) Open leg wound Assessment & Plan: continue local wound care and dressings change as per hospital protocol (3) Alcohol abuse Assessment & Plan: with intoxication , recommend counseling and rehabilitation Subjective Constitutional: Reports: no symptoms HEENT: Reports: no symptoms Respiratory: Reports: no symptoms Breasts: Reports: no symptoms Cardiovascular: Reports: no symptoms Gastrointestinal/Abdominal: Reports: no symptoms Genitourinary: Reports: no symptoms Neurologic: Reports: no symptoms Psychiatric: Reports: no symptoms Skin: Reports: no symptoms Endocrine: Reports: no symptoms Hematologic: Reports: no symptoms Musculoskeletal: Reports: no symptoms Allergies: Coded Allergies: ACETAMINOPHEN (Verified Allergy, Mild, 07/30/18) Objective Vital Signs Last 24 Hour Vital Signs Date Time Temp Pulse Resp B/P (MAP) Pulse Ox O2 Delivery O2 Flow Rate FiO2 07/31/18 16:00 97.1 86 20 109/59 (76) 98 07/31/18 12:00 99.0 77 21 137/82 (100) 99 07/31/18 09:00 Room Air 07/31/18 08:50 80 137/89 07/31/18 08:00 98.2 80 20 137/89 (105) 97 07/31/18 04:28 98.3 81 18 144/80 (101) 07/31/18 00:00 97.9 71 20 140/78 (98) 07/30/18 21:00 Room Air 07/30/18 20:00 98.2 78 17 147/81 (103) Height (Feet): 6 Height (Inches): 0.00 Weight (Pounds): 170 General Appearance: WD/WN, no acute distress HEENT: normocephalic, atraumatic, anicteric, mucous membranes moist, PERRL, EOMI, pharynx normal, no JVD Respiratory/Chest: chest wall non-tender, normal breath sounds, no respiratory distress, no accessory muscle use Cardiovascular: normal peripheral pulses, normal rate, regular rhythm, no gallop/murmur, no JVD Abdomen: normal bowel sounds, soft, non tender, no organomegaly, non distended , no mass, no scars Genitourinary: normal external genitalia Extremities: no cyanosis, no clubbing Skin: no rash, no lesions, no ulcers Neurologic/Psychiatric: cutting and boning supervisor II-XII grossly normal, no motor/sensory deficits, oriented x 3, responsive, normal mood/affect Lymphatic: no neck adenopathy, no groin adenopathy Musculoskeletal: normal muscle bulk, no effusion Laboratory Tests Test 07/31/18 06:33 07/31/18 14:25 White Blood Count 6.2 K/UL (4.8-10.8) Red Blood Count 4.80 M/UL (4.70-6.10) Hemoglobin 13.1 G/DL (14.2-18.0) L Hematocrit 41.0 % (42.0-52.0) L Mean Corpuscular Volume 85 FL (80-99) Mean Corpuscular Hemoglobin 27.2 PG (27.0-31.0) Mean Corpuscular Hemoglobin Concent 31.9 G/DL (32.0-36.0) L Red Cell Distribution Width 18.2 % (11.6-14.8) H Platelet Count 115 K/UL (150-450) L Mean Platelet Volume 8.5 FL (6.5-10.1) Neutrophils (%) (Auto) 43.7 % (45.0-75.0) L Lymphocytes (%) (Auto) 40.5 % (20.0-45.0) Monocytes (%) (Auto) 10.0 % (1.0-10.0) Eosinophils (%) (Auto) 3.4 % (0.0-3.0) H Basophils (%) (Auto) 2.4 % (0.0-2.0) H Sodium Level 140 MMOL/L (136-145) Potassium Level 4.2 MMOL/L (3.5-5.1) Chloride Level 104 MMOL/L (98-107) Carbon Dioxide Level 26 MMOL/L (21-32) Anion Gap 11 mmol/L (5-15) Blood Urea Nitrogen 13 mg/dL (7-18) Creatinine 0.8 MG/DL (0.55-1.30) Estimat Glomerular Filtration Rate > 60 mL/min (>60) Glucose Level 91 MG/DL (74-106) Calcium Level 9.0 MG/DL (8.5-10.1) Total Bilirubin 1.0 MG/DL (0.2-1.0) Aspartate Amino Transf (AST/SGOT) 149 U/L (15-37) H Alanine Aminotransferase (ALT/SGPT) 92 U/L (12-78) H Alkaline Phosphatase 164 U/L (46-116) H Total Protein 6.8 G/DL (6.4-8.2) Albumin 2.9 G/DL (3.4-5.0) L Globulin 3.9 g/dL Albumin/Globulin Ratio 0.7 (1.0-2.7) L Hepatitis C Antibody Pending Hepatitis C RNA (PCR) IUs/ml Pending Hepatitis C RNA (PCR) log IUs/ml Pending Current Medications Medications (Trade) Dose Ordered Sig/Chiqui Route PRN Reason Start Time Stop Time Status Last Admin Dose Admin Amlodipine Besylate (Norvasc) 5 mg DAILY ORAL 07/29/18 18:00 08/28/18 17:59 07/31/18 08:50 Chlordiazepoxide (Librium) 25 mg Q6H PRN ORAL Agitation 07/29/18 18:30 08/05/18 18:29 Clonidine HCl (Catapres Tab) 0.1 mg Q6H PRN ORAL For High Blood Pressure 07/29/18 18:30 08/28/18 18:29 Folic Acid (Folate) 1 mg DAILY ORAL 07/30/18 09:00 08/29/18 08:59 07/31/18 08:50 Heparin Sodium (Porcine) (Heparin 5000 units/ml) 5,000 units EVERY 12 HOURS SUBQ 07/29/18 21:00 08/28/18 20:59 07/30/18 21:03 Lorazepam (Ativan) 1 mg Q6H PRN ORAL For Anxiety 07/29/18 18:30 08/05/18 18:29 Multivitamins (Multivitamins) 1 tab DAILY ORAL 07/30/18 09:00 08/29/18 08:59 07/31/18 08:50 Tramadol HCl (Ultram) 50 mg Q6H PRN ORAL For Pain 07/29/18 21:45 08/05/18 21:44 07/31/18 13:17 Augusto Temple M.D. Jul 31, 2018 18:02
--- NOTE | 2018-07-31 19:27 | NUR ---
HAND-OFF: Report given to Adrienne TRIPATHI RN.
--- NOTE | 2018-07-31 19:38 | NUR ---
NURSE NOTES: Received patient in bed , awake, alert, oriented, VSS, afebrile, no acute distress noted, call light is within reach, bed is in low position, locked and alarm is on. Will continue to monitor for safety and comfort.
[2018-07-31 20:00] VITALS: BP 138/76
[2018-08-01] VITALS: BP 134/80
[2018-08-01 04:00] VITALS: BP 137/75
--- NOTE | 2018-08-01 07:29 | NUR ---
HAND-OFF: Report given to Tyesha RENDON.
[2018-08-01] MEDS: Heparin 5000 units/ml inj SUBQ SCH ×2 (09:00→21:00)
[2018-08-01] MEDS: traMADol 50mg tab ORAL PRN (09:34)
--- NOTE | 2018-08-01 10:35 | NUR ---
RECEIVED PATIENT IN BED AWAKE.. NO RESPIRATORY DISTRESS OR SOB,.,. REFUSED ALL SCHEDULED MEDICATIONS EXCEPT FOR PAIN MEDICATION PATIENT IS PICKING AT SC[facility] FROM PREVIOUS FALL NOT AT THE HOSPITAL... INFORMED TO NOT TOUCH DUE TO POSSIBLE INFECTIONS.. HOW BOWEL MOVEMENT ASSIST TO THE BATHROOM WITH PHYSICAL THERAPY.. CALL LIGHT IN REACH
[2018-08-01] MEDS: LORazepam 1mg tab ORAL PRN (11:19)
--- NOTE | 2018-08-01 11:53 | General Progress Note ---
Assessment/Plan Assessment/Plan S: I am doing ok O: Appears comfortable, denies sob or pain PHYSICAL EXAMINATION:HEAD AND NECK: Atraumatic and normocephalic. CHEST: Clear to auscultation.HEART: S1 and S2. Regular rate and rhythm. ABDOMEN: Soft. No organomegaly.MUSCULOSKELETAL: Paraplegia. NEUROLOGY: Awake, alert, and oriented x3. Meds: reviewed and reconciled in the chart ASSESSMENT: 1. Abnormal LFT. 2. Paraplegia. 3. GI and DVT prophylaxis. Plan: medicably stable Once DME provide, august f/u as o/p Subjective Allergies: Coded Allergies: ACETAMINOPHEN (Verified Allergy, Mild, 07/30/18) Objective Last 24 Hour Vital Signs Date Time Temp Pulse Resp B/P (MAP) Pulse Ox O2 Delivery O2 Flow Rate FiO2 08/01/18 10:07 98.7 08/01/18 09:00 Room Air 08/01/18 04:00 98.7 84 19 137/75 (95) 08/01/18 00:00 98.6 85 18 134/80 (98) 07/31/18 21:00 Room Air 07/31/18 20:00 99.1 87 20 138/76 (96) 07/31/18 16:00 97.1 86 20 109/59 (76) 98 07/31/18 12:00 99.0 77 21 137/82 (100) 99 Intake and Output 07/31/18 08/01/18 19:00 07:00 Intake Total 960 ml 1000 ml Balance 960 ml 1000 ml Intake Oral 960 ml 1000 ml # Voids 1 5 # Bowel Movements 1 Laboratory Tests 07/31/18 14:25: Hepatitis C Antibody [Pending], Hepatitis C RNA (PCR) IUs/ml [Pending], Hepatitis C RNA (PCR) log IUs/ml [Pending] Height (Feet): 6 Height (Inches): 0.00 Weight (Pounds): 170 Mariah Lopez MD Aug 01, 2018 11:53
--- NOTE | 2018-08-01 13:00 | NUR ---
Sylvain BOUCHER SEEM PATIENT ORDERED A FRONT WHEEL WALKER. PATIENT IS STABLE WITH NO ACUTE DISTRESS ABLE TO AMBULATE TO THE BATHROOM WITH FRONT WHEEL WALKER WILL CONTINUE TO MONITOR FOR ANY DISTRESS CALL LIGHT INR EACH
--- NOTE | 2018-08-01 14:21 | NUR ---
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 ELEVATED LIVER ENZYMES VS: BP 137/75, P 84, T 99.1, RR 20 IS: NORVASC 5mg ATIVAN 1mg HEPARIN SUBQ ULTRAM 50mg MED/SURG STATUS
--- NOTE | 2018-08-01 14:24 | NUR ---
*-* INSURANCE *-* ALL CLINICALS AND REVIEWS FAXED TO: RODERICK FORBES:MARY P:[phone] F:[phone]
--- NOTE | 2018-08-01 15:28 | NUR ---
Social Service Note GENEVA left a message for [employer] disability insurance hearing officer [phone] regarding authorization for a replacement rollator. SW spoke [facility] [phone] and confirmed that they recently provided patient a rollator and delivered it July 02. SW attempting to locate a rollator or w/c for patient to discharge. Homeless checklist in chart. Will follow up.
[2018-08-01 16:00] VITALS: BP 119/81
--- NOTE | 2018-08-01 17:59 | Infectious Diseases Prog Note ---
Assessment/Plan Problems: (1) Elevated liver enzymes Assessment & Plan: suspect due to alcohol intixication and viral hepatitis, with HCV. pending viral load. avoid hepatotoxic meds , avoid alcohol . recommend treatment as an outpatient (2) Open leg wound Assessment & Plan: continue local wound care and dressings change as per hospital protocol (3) Alcohol abuse Assessment & Plan: with intoxication , recommend counseling and rehabilitation Subjective Constitutional: Reports: no symptoms HEENT: Reports: no symptoms Respiratory: Reports: no symptoms Breasts: Reports: no symptoms Cardiovascular: Reports: no symptoms Gastrointestinal/Abdominal: Reports: no symptoms Genitourinary: Reports: no symptoms Neurologic: Reports: no symptoms Psychiatric: Reports: no symptoms Skin: Reports: no symptoms Endocrine: Reports: no symptoms Hematologic: Reports: no symptoms Musculoskeletal: Reports: no symptoms Allergies: Coded Allergies: ACETAMINOPHEN (Verified Allergy, Mild, 07/30/18) Objective Vital Signs Last 24 Hour Vital Signs Date Time Temp Pulse Resp B/P (MAP) Pulse Ox O2 Delivery O2 Flow Rate FiO2 08/01/18 16:00 98.1 83 20 119/81 (94) 08/01/18 10:07 98.7 08/01/18 09:00 Room Air 08/01/18 04:00 98.7 84 19 137/75 (95) 08/01/18 00:00 98.6 85 18 134/80 (98) 07/31/18 21:00 Room Air 07/31/18 20:00 99.1 87 20 138/76 (96) Height (Feet): 6 Height (Inches): 0.00 Weight (Pounds): 170 General Appearance: WD/WN, no acute distress HEENT: normocephalic, atraumatic, anicteric, mucous membranes moist Respiratory/Chest: chest wall non-tender, lungs clear, normal breath sounds, no respiratory distress, no accessory muscle use Cardiovascular: normal peripheral pulses, normal rate, regular rhythm, no gallop/murmur, no JVD Abdomen: normal bowel sounds, soft, non tender, no organomegaly, non distended , no mass, no scars Extremities: no cyanosis, no clubbing Skin: no rash, no lesions, no ulcers Neurologic/Psychiatric: alert, oriented x 3, responsive Lymphatic: no neck adenopathy, no groin adenopathy Musculoskeletal: normal muscle bulk, no effusion Current Medications Medications (Trade) Dose Ordered Sig/Chiqui Route PRN Reason Start Time Stop Time Status Last Admin Dose Admin Amlodipine Besylate (Norvasc) 5 mg DAILY ORAL 07/29/18 18:00 08/28/18 17:59 07/31/18 08:50 Chlordiazepoxide (Librium) 25 mg Q6H PRN ORAL Agitation 07/29/18 18:30 08/05/18 18:29 Clonidine HCl (Catapres Tab) 0.1 mg Q6H PRN ORAL For High Blood Pressure 07/29/18 18:30 08/28/18 18:29 Folic Acid (Folate) 1 mg DAILY ORAL 07/30/18 09:00 08/29/18 08:59 07/31/18 08:50 Heparin Sodium (Porcine) (Heparin 5000 units/ml) 5,000 units EVERY 12 HOURS SUBQ 07/29/18 21:00 08/28/18 20:59 07/31/18 20:29 Lorazepam (Ativan) 1 mg Q6H PRN ORAL For Anxiety 07/29/18 18:30 08/05/18 18:29 08/01/18 11:19 Multivitamins (Multivitamins) 1 tab DAILY ORAL 07/30/18 09:00 08/29/18 08:59 07/31/18 08:50 Tramadol HCl (Ultram) 50 mg Q6H PRN ORAL For Pain 07/29/18 21:45 08/05/18 21:44 08/01/18 09:34 Augusto Temple M.D. Aug 01, 2018 17:58
[2018-08-01 20:00] VITALS: BP 152/100
[2018-08-02] VITALS: BP 137/87
--- NOTE | 2018-08-02 03:59 | NUR ---
AWAKE,ALERT,ORIENTED,CONCERNED ABOUT HIS B/P 152/100 .SLEEPING,IN NO DISTRESS.
[2018-08-02 04:00] VITALS: BP 140/100
[2018-08-02] MEDS: traMADol 50mg tab ORAL PRN (05:52)
[2018-08-02 08:00] VITALS: BP 124/89
[2018-08-02] MEDS: LORazepam 1mg tab ORAL PRN ×2 (08:45→17:00)
[2018-08-02] MEDS: Heparin 5000 units/ml inj SUBQ SCH ×2 (08:46→21:00)
--- NOTE | 2018-08-02 10:53 | NUR ---
RECEIVED PATIENT IN BED ALERT AND AWAKE.. NO RESPIRATORY DISTRESS OR SOB PATIENT TOOK ALL MEDICATIONS HELD HEPARIN DUE TO ABNORMAL LABS.. PATIENT AWAITING ON WHEEL CHAIR... FOR DISCHARGE WELT ROUGHER AWARE OF WHEEL CHAIR ORDERED .. NO ACUTE DISTRESS CALL LIGHT INR EACH
[2018-08-02 12:00] VITALS: BP 141/90
--- NOTE | 2018-08-02 12:12 | NUR ---
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 ELEVATED LIVER ENZYMES VS: BP 140/100, P 92, T 98.5, RR 18 IS:ULTRAM 50mg LORAZEPAM 1mg NORVASC 5mg MED/SURG STATUS
--- NOTE | 2018-08-02 12:12 | NUR ---
RD ASSESSMENT & RECOMMENDATIONS SEE CARE ACTIVITY FOR COMPLETE ASSESSMENT DAILY ESTIMATED NEEDS: Needs based on Liver dysfunction / 89.5kg 25-30 kcals/kg 6837-0416 total kcals 1-1.5 g protein/kg 90-134 g total protein 25-30 mL/kg 0396-9273 total fluid mLs NUTRITION DIAGNOSIS: Decreased sodium and fat needs r/t liver dysfunction as evidenced by pt adm w/ h/o ETOH abuse, liver dz, h/o esophageal varices w/ banding, elev LFT's, elev serum alcohol (121) on adm. CURRENT DIET: Regular 2x portions PO DIET RECOMMENDATIONS: LOW NA/ LOW FAT DIET W/ DOUBLE PROTEIN ADDITIONAL RECOMMENDATIONS: 1) Obtain calibrated bed scale as able 2) Add THIAMINE/ VITAMIN B1 to folate/ MVI 3) Rec WC eval for wound photo (L-LE)
--- NOTE | 2018-08-02 13:50 | NUR ---
PATIENT IS STABLE NO ACUTE DISTRESS DENIES NO PAIN OR DISCOMFORT INFORMED TO USE CALL LIGHT WHEN GETTING OUT THE BED AWAITING ON WHEEL CHAIR PRIOR TO DISCHARGE CALL LIGHT IN REACH
--- NOTE | 2018-08-02 14:14 | NUR ---
*-* INSURANCE *-* ALL CLINICALS AND REVIEWS FAXED TO: RODERICK FORBES:MARY P:[phone] F:[phone]
--- NOTE | 2018-08-02 14:33 | General Progress Note ---
Assessment/Plan Assessment/Plan S: I am doing ok O: Appears comfortable, denies sob or pain PHYSICAL EXAMINATION:HEAD AND NECK: Atraumatic and normocephalic. CHEST: Clear to auscultation.HEART: S1 and S2. Regular rate and rhythm. ABDOMEN: Soft. No organomegaly.MUSCULOSKELETAL: Paraplegia. NEUROLOGY: Awake, alert, and oriented x3. Meds: reviewed and reconciled in the chart ASSESSMENT: 1. Abnormal LFT. 2. Paraplegia. 3. GI and DVT prophylaxis. Plan: medicably stable Once DME provide, august f/u as o/p Subjective Allergies: Coded Allergies: ACETAMINOPHEN (Verified Allergy, Mild, 07/30/18) Objective Last 24 Hour Vital Signs Date Time Temp Pulse Resp B/P (MAP) Pulse Ox O2 Delivery O2 Flow Rate FiO2 08/02/18 12:00 98.5 85 18 141/90 (107) 08/02/18 09:00 Room Air 08/02/18 08:45 92 124/89 08/02/18 08:00 98.7 92 17 124/89 (101) 08/02/18 04:00 98.6 86 18 140/100 (113) 08/02/18 00:48 Room Air 08/02/18 00:00 99.1 92 18 137/87 (104) 08/01/18 21:00 Room Air 08/01/18 20:00 98.3 90 18 152/100 (117) 08/01/18 16:00 98.1 83 20 119/81 (94) Intake and Output 08/01/18 08/02/18 19:00 07:00 Intake Total 900 ml Output Total 600 ml Balance 900 ml -600 ml Other 900 ml Output Urine Total 600 ml # Bowel Movements 2 Height (Feet): 6 Height (Inches): 0.00 Weight (Pounds): 170 Mariah Lopez MD Aug 02, 2018 14:33
--- NOTE | 2018-08-02 14:36 | NUR ---
FARHANA INFORMED ME OF WHEEL SEAT WILL ARRIVED ON 08/03/2018 WHEN PATIENT CAN BE DISCHARGE CONFIRM WITH [facility] FORMER
[2018-08-02 16:00] VITALS: BP 145/99
--- NOTE | 2018-08-02 17:31 | Infectious Diseases Prog Note ---
Assessment/Plan Problems: (1) Elevated liver enzymes Assessment & Plan: suspect due to alcohol intixication and viral hepatitis, with HCV. pending viral load. avoid hepatotoxic meds , avoid alcohol . recommend treatment as an outpatient (2) Open leg wound Assessment & Plan: continue local wound care and dressings change as per hospital protocol (3) Alcohol abuse Assessment & Plan: with intoxication , recommend counseling and rehabilitation Subjective Constitutional: Reports: no symptoms HEENT: Reports: no symptoms Respiratory: Reports: no symptoms Breasts: Reports: no symptoms Cardiovascular: Reports: no symptoms Gastrointestinal/Abdominal: Reports: no symptoms Genitourinary: Reports: no symptoms Neurologic: Reports: no symptoms Psychiatric: Reports: no symptoms Skin: Reports: no symptoms Endocrine: Reports: no symptoms Hematologic: Reports: no symptoms Musculoskeletal: Reports: no symptoms Allergies: Coded Allergies: ACETAMINOPHEN (Verified Allergy, Mild, 07/30/18) Objective Vital Signs Last 24 Hour Vital Signs Date Time Temp Pulse Resp B/P (MAP) Pulse Ox O2 Delivery O2 Flow Rate FiO2 08/02/18 17:01 162/99 08/02/18 16:00 98.2 78 20 145/99 (114) 08/02/18 12:00 98.5 85 18 141/90 (107) 08/02/18 09:00 Room Air 08/02/18 08:45 92 124/89 08/02/18 08:00 98.7 92 17 124/89 (101) 08/02/18 04:00 98.6 86 18 140/100 (113) 08/02/18 00:48 Room Air 08/02/18 00:00 99.1 92 18 137/87 (104) 08/01/18 21:00 Room Air 08/01/18 20:00 98.3 90 18 152/100 (117) Height (Feet): 6 Height (Inches): 0.00 Weight (Pounds): 170 General Appearance: WD/WN, no acute distress HEENT: normocephalic, atraumatic, anicteric, mucous membranes moist, PERRL Respiratory/Chest: chest wall non-tender, lungs clear, normal breath sounds, no respiratory distress, no accessory muscle use Cardiovascular: normal peripheral pulses, normal rate, regular rhythm, no gallop/murmur, no JVD Abdomen: normal bowel sounds, soft, non tender, no organomegaly, non distended , no mass, no scars Genitourinary: normal external genitalia Extremities: no cyanosis, no clubbing Skin: no rash, no lesions, no ulcers Neurologic/Psychiatric: ecotherapist II-XII grossly normal, no motor/sensory deficits, abnormal gait, alert, oriented x 3, responsive Lymphatic: no neck adenopathy, no groin adenopathy Musculoskeletal: normal muscle bulk, no effusion Current Medications Medications (Trade) Dose Ordered Sig/Chiqui Route PRN Reason Start Time Stop Time Status Last Admin Dose Admin Amlodipine Besylate (Norvasc) 5 mg DAILY ORAL 07/29/18 18:00 08/28/18 17:59 08/02/18 08:45 Chlordiazepoxide (Librium) 25 mg Q6H PRN ORAL Agitation 07/29/18 18:30 08/05/18 18:29 Clonidine HCl (Catapres Tab) 0.1 mg Q6H PRN ORAL For High Blood Pressure 07/29/18 18:30 08/28/18 18:29 08/02/18 17:01 Folic Acid (Folate) 1 mg DAILY ORAL 07/30/18 09:00 08/29/18 08:59 08/02/18 08:45 Heparin Sodium (Porcine) (Heparin 5000 units/ml) 5,000 units EVERY 12 HOURS SUBQ 07/29/18 21:00 08/28/18 20:59 07/31/18 20:29 Lorazepam (Ativan) 1 mg Q6H PRN ORAL For Anxiety 07/29/18 18:30 08/05/18 18:29 08/02/18 17:00 Multivitamins (Multivitamins) 1 tab DAILY ORAL 07/30/18 09:00 08/29/18 08:59 08/02/18 08:45 Tramadol HCl (Ultram) 50 mg Q6H PRN ORAL For Pain 07/29/18 21:45 08/05/18 21:44 08/02/18 05:52 Augusto Temple M.D. Aug 02, 2018 17:31
--- NOTE | 2018-08-02 17:33 | NUR ---
GAVE CLONIDINE O.1 MG AND ATIVAN DUE TO HIGH LEVEL OF ANXIETY AND ELEVATED BLOOD PRESSURE.. PATIENT IS STABLE AT THIS TIME.. DENIES NO HEADACHES.. CALL LIGHT IN REACH
--- NOTE | 2018-08-02 18:21 | NUR ---
PATIENT IS SLEEPY WELL NO ACUTE..
--- NOTE | 2018-08-02 19:30 | NUR ---
NURSE NOTES: RECEIVED PATIENT LYING IN BED, AWAKE, ALERT/ORIENTED X3, DENIES PAIN, NO SIGNS AND SYMPTOMS OF ACUTE CARDIO RESPIRATORY DISTRESS/SHORTNESS OF BREATH, DENIES CHEST PAIN, NO EDEMA NOTED. [facility] FWW AT BEDSIDE, ENCOURAGED PATIENT TO UTILIZE CALL LIGHT FOR ASSISTANCE PRIOR TO AMBULATING, VERBALIZED UNDERSTANDING. NO COMPLAINTS OF GI DISCOMFORT, NO N/V/D, URINAL AT BEDSIDE. SIDE RAILS UP X3, BED IN LOWEST POSITION FOR SAFETY, CALL LIGHT WITHIN REACH, FREQUENT ROUNDING FOR SAFETY/NEEDS. CONTINUE WITH CURRENT PLAN OF CARE. NAD. DISCHARGE PLANNING ONGOING.
--- NOTE | 2018-08-02 19:49 | NUR ---
NURSE NOTES: RECEIVED PATIENT LYING IN BED, AWAKE, ALERT/ORIENTED X3,REALITY ORIENTATION PROVIDED DURING ASSESSMENT/PRN, NO SIGNS AND SYMPTOMS OF ACUTE CARDIO RESPIRATORY DISTRESS/SHORTNESS OF BREATH, DENIES CHEST PAIN, NO PERIPHERAL EDEMA NOTED. CONTINENT OF BOWEL/BLADDER, ENCOURAGED PATIENT TO UTILIZE CALL LIGHT FOR ASSISTANCE, VERBALIZED UNDERSTANDING. PM CARE PROVIDED. SIDE RAILS UP X3/BED IN LOWEST POSITION FOR SAFETY. CALL LIGHT WITHIN REACH. PHYSICAL THERAPY ONGOING SECONDARY TO GENERALIZED WEAKNESS, FWW AT BEDSIDE. CONTINUE WITH CURRENT PLAN OF CARE. NAD.
[2018-08-02 20:00] VITALS: BP 132/86
[2018-08-03] VITALS: BP 130/82
[2018-08-03 04:00] VITALS: BP 126/81
--- NOTE | 2018-08-03 06:20 | NUR ---
NURSE NOTES: RESTED WELL, NO SIGNIFICANT CHANGE OF CONDITION NOTED THROUGHOUT THE NIGHT. SAFETY MAINTAINED. NAD.
--- NOTE | 2018-08-03 07:30 | NUR ---
HAND-OFF: Report given to JULIETA JULIAN.
[2018-08-03 08:00] VITALS: BP 127/95
[2018-08-03] MEDS: Heparin 5000 units/ml inj SUBQ SCH (08:57)
--- NOTE | 2018-08-03 09:00 | NUR ---
NURSE NOTES: RECEIVED PATIENT A/A/OX4. AMBULATORY WITH WALKER. PATIENT ABLE TO VERBALIZE NEEDS. EXCELLENT APPETITE. SIDERAILS ARE UP X2. CALL LIGHT IS WITHIN REACH. VOLODYMYR @ BEDSIDE. NO C/O PAIN/DISCOMFORT NOTED. BED ALARM MODE IS ON AND LOCKED. WILL CONT TO MONITOR.
--- NOTE | 2018-08-03 11:42 | NUR ---
SS note Patient currently requesting clothing. This SW provided an extra large t-shirt and large pants. Patient requested extra extra large shirts, stating "I use brand name clothes, this is not good enough." Patient started telling at this patient, demanding to bring him brand name clothing, "not [employer] clothing, "extra extra large". Patient was informed what clothing was available to patient, which appears appropriate in size for patient. Patient has a large bag of clothing at bedside as well, which will need to be washed in the laundry mat (recommended going to laundry mat to have his clothing washed). Clothing left with nursing to give to the patient as well.
[2018-08-03 11:48] VITALS: BP_SYST 135; BP_SYST 158; BP_DIAS 76; BP_DIAS 91
--- NOTE | 2018-08-03 12:58 | General Progress Note ---
Assessment/Plan Assessment/Plan S: I am doing ok O: Appears comfortable, denies sob or pain PHYSICAL EXAMINATION:HEAD AND NECK: Atraumatic and normocephalic. CHEST: Clear to auscultation.HEART: S1 and S2. Regular rate and rhythm. ABDOMEN: Soft. No organomegaly.MUSCULOSKELETAL: Paraplegia. NEUROLOGY: Awake, alert, and oriented x3. Meds: reviewed and reconciled in the chart ASSESSMENT: 1. Abnormal LFT. 2. Paraplegia. 3. GI and DVT prophylaxis. Plan: medicably stable Once DME provide, august f/u as o/p Subjective Allergies: Coded Allergies: ACETAMINOPHEN (Verified Allergy, Mild, 07/30/18) Objective Last 24 Hour Vital Signs Date Time Temp Pulse Resp B/P (MAP) Pulse Ox O2 Delivery O2 Flow Rate FiO2 08/03/18 11:48 97.3 79 18 135/91 (106) 98 08/03/18 08:57 88 127/95 08/03/18 08:00 98.1 88 20 127/95 (106) 98 08/03/18 04:00 97.5 91 18 126/81 (96) 98 08/03/18 00:00 98.9 93 18 130/82 (98) 97 08/02/18 21:00 Room Air 08/02/18 20:00 98.8 88 17 132/86 (101) 97 08/02/18 17:01 162/99 08/02/18 16:00 98.2 78 20 145/99 (114) Intake and Output 08/02/18 08/03/18 19:00 07:00 Intake Total 2025 ml Output Total 2500 ml Balance -475 ml Intake Oral 2025 ml Output Urine Total 2500 ml # Voids 2 # Bowel Movements 2 Height (Feet): 6 Height (Inches): 0.00 Weight (Pounds): 170 Mariah Lopez MD Aug 03, 2018 12:58
--- NOTE | 2018-08-03 15:36 | NUR ---
NURSE NOTES: PATIENT ABLE TO PROVIDE ADDRESS WHERE HE IS GOING TO: [address], [place]. STATED THAT HE WILL STAY @ HIS BROTHER'S HOUSE, [place]. I ASKED PATIENT IF I CAN CALL HIS BROTHER, HE STATED THAT SAM[facility]EL DOES NOT HAVE A PHONE. WILL CONT TO MONITOR.
[2018-08-03 16:00] VITALS: BP 149/96
--- NOTE | 2018-08-03 16:24 | NUR ---
SS note This Sw followed up with patient to provide additional clothing (larger in size). Patient stating he is in agreement with using this. Patient wanting to file a complaint about the ambulance company. This Sw advised to contact them to express any concerns that he might have (contact number for [employer] contact number provided to patient).
--- NOTE | 2018-08-03 16:49 | Infectious Diseases Prog Note ---
Assessment/Plan Problems: (1) Elevated liver enzymes Assessment & Plan: suspect due to alcohol intixication and viral hepatitis, with HCV. viral load is significantly high . avoid hepatotoxic meds , avoid alcohol . recommend treatment as an outpatient with specialist (2) Open leg wound Assessment & Plan: continue local wound care and dressings change as per hospital protocol (3) Alcohol abuse Assessment & Plan: with intoxication , recommend counseling and rehabilitation Subjective Constitutional: Reports: no symptoms HEENT: Reports: no symptoms Respiratory: Reports: no symptoms Breasts: Reports: no symptoms Cardiovascular: Reports: no symptoms Gastrointestinal/Abdominal: Reports: no symptoms Genitourinary: Reports: no symptoms Neurologic: Reports: no symptoms Psychiatric: Reports: no symptoms Skin: Reports: no symptoms Endocrine: Reports: no symptoms Hematologic: Reports: no symptoms Musculoskeletal: Reports: no symptoms Allergies: Coded Allergies: ACETAMINOPHEN (Verified Allergy, Mild, 07/30/18) Objective Vital Signs Last 24 Hour Vital Signs Date Time Temp Pulse Resp B/P (MAP) Pulse Ox O2 Delivery O2 Flow Rate FiO2 08/03/18 16:00 98.5 94 19 149/96 (113) 95 08/03/18 11:48 97.3 79 18 135/91 (106) 98 08/03/18 09:00 Room Air 08/03/18 08:57 88 127/95 08/03/18 08:00 98.1 88 20 127/95 (106) 98 08/03/18 04:00 97.5 91 18 126/81 (96) 98 08/03/18 00:00 98.9 93 18 130/82 (98) 97 08/02/18 21:00 Room Air 08/02/18 20:00 98.8 88 17 132/86 (101) 97 08/02/18 17:01 162/99 Height (Feet): 6 Height (Inches): 0.00 Weight (Pounds): 170 General Appearance: WD/WN, no acute distress HEENT: normocephalic, atraumatic, anicteric, mucous membranes moist, PERRL Respiratory/Chest: chest wall non-tender, lungs clear, normal breath sounds, no respiratory distress, no accessory muscle use Cardiovascular: normal peripheral pulses, normal rate, regular rhythm, no gallop/murmur, no JVD Abdomen: normal bowel sounds, soft, non tender, no organomegaly, non distended , no mass, no scars Extremities: no cyanosis, no clubbing Skin: no rash, no lesions, no ulcers Neurologic/Psychiatric: metal weigher II-XII grossly normal, alert, oriented x 3, responsive Lymphatic: no neck adenopathy, no groin adenopathy Musculoskeletal: normal muscle bulk, no effusion Current Medications Medications (Trade) Dose Ordered Sig/Chiqui Route PRN Reason Start Time Stop Time Status Last Admin Dose Admin Amlodipine Besylate (Norvasc) 5 mg DAILY ORAL 07/29/18 18:00 08/28/18 17:59 08/03/18 08:57 Chlordiazepoxide (Librium) 25 mg Q6H PRN ORAL Agitation 07/29/18 18:30 08/05/18 18:29 Clonidine HCl (Catapres Tab) 0.1 mg Q6H PRN ORAL For High Blood Pressure 07/29/18 18:30 08/28/18 18:29 08/02/18 17:01 Folic Acid (Folate) 1 mg DAILY ORAL 07/30/18 09:00 08/29/18 08:59 08/03/18 08:57 Heparin Sodium (Porcine) (Heparin 5000 units/ml) 5,000 units EVERY 12 HOURS SUBQ 07/29/18 21:00 08/28/18 20:59 07/31/18 20:29 Lorazepam (Ativan) 1 mg Q6H PRN ORAL For Anxiety 07/29/18 18:30 08/05/18 18:29 08/02/18 17:00 Multivitamins (Multivitamins) 1 tab DAILY ORAL 07/30/18 09:00 08/29/18 08:59 08/03/18 08:57 Tramadol HCl (Ultram) 50 mg Q6H PRN ORAL For Pain 07/29/18 21:45 08/05/18 21:44 08/02/18 05:52 Augusto Temple M.D. Aug 03, 2018 16:49
--- NOTE | 2018-08-03 18:30 | NUR ---
NURSE NOTES: PATIENT DISCHARGE HOME VIA [facility]. REFUSED TO SIGN PERSONAL BELONGINGS THOUGH HE HAS ALL HIS BELONGINGS. IV HEPLOCK REMOVED. ROLLATOR WALKER PROVIDED. NO ACUTE RESP DISTRESS NOTED. DISCHARGE HOME AND PROVIDED HIS HOME ADDRESS.
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
== END 2018-08-03 18:50 | disposition home or self-care (01) | DRG 775 ==
LOC: EDBD 20:22 → EMR 21:20 → EDBEDREQ 07-29 16:14 → MERGE 07-29 17:27 → 4E 07-29 17:27
DX: F10.129 Alcohol abuse with intoxication, unspecified (principal); G82.20 Paraplegia, unspecified; S36.119A Unspecified injury of liver, initial encounter; B17.10 Acute hepatitis C without hepatic coma; V89.2XXS Person injured in unspecified motor-vehicle accident, traffic, sequela; Z59.0 Homelessness; S81.809A Unspecified open wound, unspecified lower leg, initial encounter; X58.XXXA Exposure to other specified factors, initial encounter; Z88.6 Allergy status to analgesic agent
CPT/HCPCS: 36415; 80053; 80061; 80076; 80307; 80329; 83036; 85025; 86705; 86709; 86803; 87340; 87522; 99285

== ENCOUNTER 2018-09-26 12:22 | Emergency (ER) | payer MEDICAID ==
[~2018-09-26] VITALS: Ht 182.9 cm; Wt 95.3 kg
[2018-09-26] MEDS ORDERED: UNOBMED (12:25)
[2018-09-26] MEDS ORDERED: Thiamine HCl 100 MG in D5W 55 ML IVPB SCH (12:45)
[2018-09-26 13:19] VITALS: BP 118/69
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
[2018-09-26 13:35] LABS: ANION GAP 10 mmol/L (5-15); BLOOD UREA NITROGEN 12 mg/dL (7-18); CALCIUM 8.8 MG/DL (8.5-10.1); CARBON DIOXIDE 26 MMOL/L (21-32); CHLORIDE 104 MMOL/L (98-107); CREATININE 0.8 MG/DL (0.55-1.30); POTASSIUM 3.9 MMOL/L (3.5-5.1); SODIUM 140 MMOL/L (136-145)
[2018-09-26 13:40] LABS: ALANINE AMINOTRANSFERASE 63 U/L (12-78); ALBUMIN 2.9 G/DL (3.4-5.0); ALBUMIN/GLOBULIN RATIO 0.6 (1.0-2.7); ALKALINE PHOSPHATASE 105 U/L (46-116); ASPARTATE AMINO TRANSFERASE 119 U/L (15-37); BILIRUBIN,TOTAL 0.9 MG/DL (0.2-1.0)
[2018-09-26] MEDS ORDERED: cefTRIAXone 1 GM in NS 55 ML IVPB ONE (13:45)
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
[2018-09-26 13:51] LABS: BASOPHILS % (AUTO) 1.9 % (0.0-2.0); EOSINOPHILS % (AUTO) 0.8 % (0.0-3.0); HEMATOCRIT 32.5 % (42.0-52.0); HEMOGLOBIN 10.3 G/DL (14.2-18.0); LYMPHOCYTES % (AUTO) 23.9 % (20.0-45.0); MEAN CORPUSCULAR VOLUME 88 FL (80-99); MONOCYTES % (AUTO) 13.6 % (1.0-10.0); NEUTROPHILS % (AUTO) 59.7 % (45.0-75.0); PLATELET COUNT 241 K/UL (150-450); RED CELL DISTRIBUTION WIDTH 17.2 % (11.6-14.8)
--- NOTE | 2018-09-26 14:30 | NUR ---
ED Nurse Note: SPOKE TO SALVADOR FROM [facility] REGARDING PT.'S MOTORIZED WHEELCHAIR . PER SALVADOR, THEY WON'T BE ABLE TO TAKE THE MOTORIZED WHEELCHAIR TO THE HOSPITAL. INFORME DIRECTOR REGARDING THE ISSUE
--- NOTE | 2018-09-26 15:08 | NUR ---
ED Nurse Note: received report from JONE Bowden and assumed care, pt vss, resp even and unlabored, per RN giacomo, casemanager/social secretary contacted for wheelchair, pending discharge, pt reports pain on aguilar foot, ER provider notified.
[2018-09-26 15:13] VITALS: BP 120/70
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
--- NOTE | 2018-09-26 16:05 | NUR ---
ED Nurse Note: report given to JONE Newton and endorsed care. no changes in condition, vss, resp even and unlabored on RA.
--- NOTE | 2018-09-26 16:12 | NUR ---
ED Nurse Note: CARDIOLOGIST AT BEDSIDE.
--- NOTE | 2018-09-26 16:58 | NUR ---
Social Service Note SW familiar with patient from previous admission 07/2018. Patient is alert, oriented and verbally responsive. Patient with multiple ER visits for intoxication. Patient admits to ETOH dependency. Patient has not followed up with his immigration case worker regarding housing options. Upon discharge in July patient was provided transportation to his brother's home [facility] located [place] [address] [place] [address]. Patient utilized a rotator walker. Patient states he was recently provided a motorized w/c, but was left on the scene by EMS. Patient states he will either require a w/c or rotator upon discharge as he is unable to ambulate. Patient didn't follow up with his PCP, [address] [place] [address], . SW contacted clinic and currently they do not have availablity until the end of the month. Clinic encourages for patient to walk-in during the hours of 10am-12pm or 3pm-445pm M-F. Patient states he will require a taxi on discharge and will provided the address at that time but indicated he will return to previous address. Patient not receptive to substance dependency assessment centers for follow up care or treatment referrals. Homeless check list placed in chart. Emergency contact continues to be his mother Louise Khan [phone].
--- NOTE | 2018-09-26 19:10 | NUR ---
ED Nurse Note: Patient eating sandwiches, has no complaints at this time. Patient provided with a ham sandwich in exchange for the tuna he was unwilling to eat.
--- NOTE | 2018-09-26 19:47 | NUR ---
ED Nurse Note: Patient is resting comfortably awaiting transports arrivalf or transfer to [facility] around 2029.
--- NOTE | 2018-09-26 20:39 | NUR ---
ED Nurse Note: Called and rendered report to laura. ETA was estimated for 2030, [facility] has not arrived.
--- NOTE | 2018-09-26 20:56 | NUR ---
ED Nurse Note: Transport here for last picker now. patient A&Ox4 non ambulatory.
[2018-09-26 21:05] VITALS: BP 120/70
--- NOTE | 2018-09-26 21:06 | NUR ---
ED Nurse Note: Patient departed with EMS personnel with all person belongings.
== END 2018-09-26 21:07 | disposition short-term general hospital (02) ==
LOC: EDBD 12:22 → EMR 12:55
DX: G89.29 Other chronic pain (principal); R60.0 Localized edema; L89.899 Pressure ulcer of other site, unspecified stage; G82.20 Paraplegia, unspecified; Z99.3 Dependence on wheelchair; I10 Essential (primary) hypertension; Z88.6 Allergy status to analgesic agent
CPT/HCPCS: 36415; 80053; 80329; 83605; 85025; 87040; 87070; 87181; 87205; 96365; 96366; 96367; 99284; J0696

== ENCOUNTER 2019-11-14 07:45 | Emergency (ER) | payer MEDICAID ==
[~2019-11-14] VITALS: Ht 177.8 cm; Wt 90.7 kg
[2019-11-14 07:45] VITALS: BP 142/79
[2019-11-14] MEDS ORDERED: Ketorolac 30mg Inj IV ONE (08:15)
[2019-11-14 08:44] LABS: BASOPHILS % (AUTO) 2.2 % (0.0-2.0); EOSINOPHILS % (AUTO) 3.7 % (0.0-3.0); HEMATOCRIT 48.8 % (42.0-52.0); MEAN CORPUSCULAR VOLUME 95 FL (80-99); NEUTROPHILS % (AUTO) 49.1 % (45.0-75.0); PLATELET COUNT 182 K/UL (150-450); RED BLOOD COUNT 5.13 M/UL (4.70-6.10); RED CELL DISTRIBUTION WIDTH 18.5 % (11.6-14.8); WHITE BLOOD COUNT 5.6 K/UL (4.8-10.8)
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
[2019-11-14 08:55] LABS: ANION GAP 10 mmol/L (5-15); BLOOD UREA NITROGEN 9 mg/dL (7-18); CALCIUM 8.5 MG/DL (8.5-10.1); CARBON DIOXIDE 28 MMOL/L (21-32); CHLORIDE 107 MMOL/L (98-107); CREATININE 1.1 MG/DL (0.55-1.30); POTASSIUM 3.8 MMOL/L (3.5-5.1); SODIUM 145 MMOL/L (136-145)
[2019-11-14 09:06] LABS: ALANINE AMINOTRANSFERASE 128 U/L (12-78); ALBUMIN/GLOBULIN RATIO 0.7 (1.0-2.7); ALKALINE PHOSPHATASE 139 U/L (46-116); ASPARTATE AMINO TRANSFERASE 178 U/L (15-37)
--- NOTE | 2019-11-14 09:27 | Diagnostic Imaging Report ---
Indications: Trauma, back pain, history of paraplegia Technique: Spiral acquisitions obtained through the lumbar spine. Multiplanar reconstructions were generated. No IV contrast utilized. Total dose length product 272 mGycm. CTDIvol(s) 8 mGy. Dose reduction achieved using automated exposure control Comparison: Lumbar MRI dated 11/11/2017 Findings: There is a wedge compression fracture deformity of the L1 vertebral body. This was also evident on the prior MRI and appears to be unchanged. There are secondary degenerative changes of the T12-L1 disc noted. The remaining vertebral body heights are preserved. No acute fractures. No dislocations. The upper sacrum appears to be intact. There is considerable degenerative change of the L5-S1 disc, with some endplate irregularity and considerable subchondral cyst formation. This is also evident on the prior MRI. The remaining disc spaces are preserved except for slight narrowing of the posterior T12-L1 disc. At L3-4, there is circumferential annular bulge. This does not significantly compromise the neural foramina or the spinal canal. There is mild degenerative spondylosis at this level. At L4-5, there is mild circumferential annular bulge which does not significantly compromise the spinal canal or neural foramina. There is bilateral facet arthrosis at this level. At L5-S1, there is circumferential annular bulge as well as broad-based central posterior disc protrusion which is considerably better appreciated on the prior MRI. As previously reported, this results in mild to moderate central canal stenosis and moderate bilateral neural foraminal compromise. The included extraspinal soft tissues are unremarkable. Impression: No definite acute bony trauma Old L1 compression fracture Circumferential annular bulge and broad-based posterior disc protrusion at L5-S1, resulting in mild to moderate compromise of the spinal canal and moderate compromise of the neural foramina. Is also reported on prior MRI and is better demonstrated on that exam Extensive degenerative changes at L5-S1. Less extensive degenerative changes at T12-L1. Other degenerative changes as detailed on a level by level basis above The CT scanner at [facility] is accredited by the [employer] and the scans are performed using protocols designed to limit radiation exposure to as low as reasonably achievable to attain images of sufficient resolution adequate for diagnostic evaluation.
[2019-11-14 09:50] VITALS: BP 154/82
[2019-11-14] MEDS ORDERED: NAPROXEN500 M2 ORAL (10:29)
[2019-11-14 11:45] VITALS: BP 133/79
[2019-11-14 13:55] VITALS: BP 147/79
== END 2019-11-14 15:19 | disposition home or self-care (01) ==
LOC: EDBD 07:45 → EMR 08:10
DX: G89.29 Other chronic pain (principal); M54.5 Low back pain; F10.129 Alcohol abuse with intoxication, unspecified; G82.22 Paraplegia, incomplete; I10 Essential (primary) hypertension; Y90.4 Blood alcohol level of 80-99 mg/100 ml; Z88.6 Allergy status to analgesic agent; W05.0XXA Fall from non-moving wheelchair, initial encounter; Y93.9 Activity, unspecified; Y92.9 Unspecified place or not applicable
CPT/HCPCS: 36415; 72131; 80053; 85025; 96374; G0480; J1885; Z7502; 99284

== ENCOUNTER 2020-06-13 06:52 | Emergency (ER) | payer MEDICAID ==
[~2020-06-13] VITALS: Ht 193 cm; Wt 93.0 kg
[~2020-06-13 06:52] MED LIST changes: +NAPROXEN500 M2 ORAL
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
[2020-06-13 07:17] VITALS: BP 162/92
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
== END 2020-06-13 07:37 | disposition home or self-care (01) ==
LOC: EDUNIT# 06:52 → EDBD 06:52 → EMR 07:17
DX: F91.8 Other conduct disorders (principal); M54.6 Pain in thoracic spine; I10 Essential (primary) hypertension; G82.20 Paraplegia, unspecified; F10.10 Alcohol abuse, uncomplicated; F19.11 Other psychoactive substance abuse, in remission; Z88.6 Allergy status to analgesic agent
CPT/HCPCS: 99283

== ENCOUNTER 2020-06-25 12:30 | Emergency (ER) | payer MEDICAID ==
[~2020-06-25] VITALS: Ht 188 cm; Wt 81.6 kg
[2020-06-25 13:44] VITALS: BP 130/80
--- NOTE | 2020-06-25 13:45 | NUR ---
Called [facility] spoke to kajal who states patient doesnot want to be there and crawled out . he is a praplegic unable to walk
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
--- NOTE | 2020-06-25 14:29 | NUR ---
iv inserted, labwork sent. pt cooperative, in [facility]. will continue to monitor.
[2020-06-25 14:49] LABS: BASOPHILS % (AUTO) 2.2 % (0.0-2.0); EOSINOPHILS % (AUTO) 1.7 % (0.0-3.0); HEMATOCRIT 51.8 % (42.0-52.0); HEMOGLOBIN 15.8 G/DL (14.2-18.0); MEAN CORPUSCULAR VOLUME 100 FL (80-99); MONOCYTES % (AUTO) 16.2 % (1.0-10.0); NEUTROPHILS % (AUTO) 58.9 % (45.0-75.0); PLATELET COUNT 157 K/UL (150-450); RED BLOOD COUNT 5.18 M/UL (4.70-6.10); WHITE BLOOD COUNT 8.7 K/UL (4.8-10.8)
[2020-06-25 14:57] LABS: ANION GAP 10 mmol/L (5-15); BLOOD UREA NITROGEN 19 mg/dL (7-18); CALCIUM 9.6 MG/DL (8.5-10.1); CARBON DIOXIDE 25 MMOL/L (21-32); CHLORIDE 109 MMOL/L (98-107); CREATININE 0.9 MG/DL (0.55-1.30); SODIUM 144 MMOL/L (136-145)
--- NOTE | 2020-06-25 15:20 | NUR ---
pt given food, fluids.
--- NOTE | 2020-06-25 16:22 | NUR ---
pt refusing to stay. pt states he can care for self and does not need assistance when walking. pt able to transfer self from wheelchair to restroom without assistance. RN on standby for help. pr refusing rn/er staff to touch him. refusing assistance. pt ripped out iv. bleeding controlled. pt A&Ox4. verbalizes plan to transfer self from taxi to home if provided.
[2020-06-25 18:03] VITALS: BP 130/80
--- NOTE | 2020-06-25 18:04 | NUR ---
DISCHARGED HOME VIA TAXI
== END 2020-06-25 16:55 | disposition home or self-care (01) ==
LOC: EDBD 12:30 → EMR 13:05 → CANBEDREQ 18:05
DX: G82.20 Paraplegia, unspecified (principal); I10 Essential (primary) hypertension; Z88.6 Allergy status to analgesic agent; W05.0XXA Fall from non-moving wheelchair, initial encounter; Y93.89 Activity, other specified; Y92.410 Unspecified street and highway as the place of occurrence of the external cause
CPT/HCPCS: 36415; 80048; 85025; Z7502; 99283